=== PATIENT | female | born 1945 | race Caucasian/White ===

== ENCOUNTER 2018-05-13 21:32 | Observation (INO) | payer MEDICARE, BC ==
[2018-05-13 22:13] LABS: CHLORIDE,CL 101 mEq/L (98-106); SODIUM,NA 140 mEq/L (136-145)
--- NOTE | 2018-05-13 22:26 | EDM.PDOC ---
ED HPI GENERAL MEDICAL PROBLEM - General Chief Complaint: Chest Pain Stated Complaint: chest pain Time Seen by Provider: 05/13/18 21:47 Source of Information: Reports: Patient History Limitations: Reports: No Limitations - History of Present Illness INITIAL COMMENTS - FREE TEXT/NARRATIVE: Mary is a 72 yo female who presents to the ED with complaints of chest pain. She states she was sitting at her computer this evening and started getting midsternal chest pain with radiation into her neck. She states she had a burning sensation in her neck. Denies any history of GERD. She admits she then went to sit down on the couch and symptoms didn't subside. She has chronic history of shortness of breath but states tonight it seems worse. Denies any upper respiratory symptoms. States she has a history of mild aortic insufficiency, otherwise denies any cardiac history. Currently on Plavix and has been on for quite some time secondary to a stroke many years ago. She states she hasn't been feeling well the last few days. States she has been lightheaded and fatigued. 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 Chest Pain Score (Numeric/FACES): 5 - Related Data Allergies Allergy/AdvReac Type Severity Reaction Status Date / Time acetaminophen Allergy Nausea and Verified 05/13/18 21:47 [From Darvocet-N 100] Vomiting codeine Allergy Vomiting Verified 05/13/18 21:47 cyclobenzaprine HCl Allergy Cannot Verified 05/13/18 21:47 [From Flexeril] Remember dipyridamole [From Aggrenox] Allergy Vomiting Verified 05/13/18 21:47 methylprednisolone sodium Allergy Edema Verified 05/13/18 21:47 succinate [From Solu-Medrol] morphine Allergy Hallucinati Verified 05/13/18 21:47 ons promethazine HCl Allergy Hypotension Verified 05/13/18 21:47 [From Phenergan] propoxyphene napsylate Allergy Nausea and Verified 05/13/18 21:47 [From Darvocet-N 100] Vomiting sulfamethoxazole Allergy Nausea and Verified 05/13/18 21:47 [From Bactrim] Vomiting Tetanus Vaccines and Toxoid Allergy Edema Verified 05/13/18 21:47 [Tetanus Vaccines & Toxoid] trimethoprim [From Bactrim] Allergy Nausea and Verified 05/13/18 21:47 Vomiting levofloxacin AdvReac Mild Nausea Verified 05/13/18 21:47 primidone AdvReac Vomiting Verified 05/13/18 21:47 Home Meds: Home Meds Atenolol [Tenormin] 25 mg PO DAILY 05/28/13 [History] Ketorolac Tromethamine [Acular] 1 drop EYELF DAILY PRN 05/28/13 [History] Sertraline HCl 100 mg PO DAILY 05/28/13 [History] Travoprost [Travatan Z 0.004% Ophth Soln] 1 drop EYEBOTH QPM 05/28/13 [History] atorvaSTATin [Lipitor] 40 mg PO DAILY 05/28/13 [History] cycloSPORINE [Restasis] 1 each OP BID 05/28/13 [History] prednisoLONE acetate [Pred Forte 1% Ophth Susp] 1 drop EYEBOTH DAILY PRN [History] Cholecalciferol (Vitamin D3) [Vitamin D] 5,000 unit PO DAILY 01/14/15 [History] Magnesium 250 mg PO DAILY 01/14/15 [History] Clopidogrel Bisulfate [Clopidogrel] 75 mg PO DAILY 01/22/16 [History] Levothyroxine Sodium [Synthroid] 50 mcg PO DAILY 01/22/16 [History] Albuterol [Ventolin HFA] 8 gm INH BID 04/11/16 [History] Ketorolac [Acular 0.5% Ophth Soln] 1 drop OP TID PRN 04/11/16 [History] Mometasone Furoate [Nasonex [place]] 17 gm ALYSSA DAILY 04/11/16 [History] valACYclovir HCl [Valtrex] 250 mg PO ASDIRECTED PRN 04/11/16 [History] Past Medical History HEENT History: Reports: Cataract, Glaucoma Other HEENT History: EAR INFECTIONS Cardiovascular History: Reports: High Cholesterol, Hypertension Other Cardiovascular History: VALVE INSUFFICIENCY Respiratory History: Reports: Asthma Gastrointestinal History: Reports: Diverticulosis, Irritable Bowel Syndrome Genitourinary History: Reports: Other (See Below) Other Genitourinary History: 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: Neurological History: Reports: CVA, Headaches, Chronic, TIA Psychiatric History: Reports: Anxiety, Depression Endocrine/Metabolic History: Reports: Hypothyroidism Hematologic History: Reports: Blood Transfusion(s) Other Hematologic History: 1981-blood transfusion - Infectious Disease History Infectious Disease History: Reports: Shingles - Past Surgical History HEENT Surgical History: Reports: Cataract Surgery GI Surgical History: Reports: Appendectomy, Cholecystectomy, Colonoscopy, EGD Female Surgical History: Reports: Hysterectomy, Oophorectomy Musculoskeletal Surgical History: Reports: Arthroscopic Knee Social & Family History - Family History Family Medical History: Noncontributory - Tobacco Use Smoking Status *Q: Never Smoker - Caffeine Use Caffeine Use: Reports: Coffee - Recreational Drug Use Recreational Drug Use: No ED ROS GENERAL - Review of Systems Review Of Systems: See Below Constitutional: Reports: Fatigue. Denies: Fever, Chills, Diaphoresis HEENT: Reports: No Symptoms Respiratory: Reports: Shortness of Breath. Denies: Pleuritic Chest Pain, Cough Cardiovascular: Reports: Chest Pain, Dyspnea on Exertion, Lightheadedness. Denies: Edema, Palpitations, Syncope GI/Abdominal: Reports: No Symptoms. Denies: Bloody Stool, Constipation, Diarrhea, Nausea, Vomiting : Reports: No Symptoms Musculoskeletal: Reports: No Symptoms Skin: Reports: No Symptoms Neurological: Reports: Dizziness, Headache. Denies: Syncope, Difficulty Walking , Change in Speech, Gait Disturbance Psychiatric: Reports: No Symptoms ED EXAM, GENERAL - Physical Exam Exam: See Below Exam Limited By: No Limitations General Appearance: Alert, No Apparent Distress (sitting comfortably on examination cart, no signs of current distress, mild anxiety noted) Ears: Normal External Exam, Normal Canal, Hearing Grossly Normal, Normal TMs Nose: Normal Inspection, No Blood Throat/Mouth: Normal Inspection, Normal Lips, Normal Teeth, Normal Gums, Normal Oropharynx, Normal Voice, No Airway Compromise Head: Atraumatic, Normocephalic Neck: Normal Inspection, Supple Respiratory/Chest: No Respiratory Distress, Lungs Clear, Normal Breath Sounds, No Accessory Muscle Use Cardiovascular: Normal Peripheral Pulses, Regular Rate, Rhythm, No Edema, No Gallop, Systolic Murmur (RUSB) GI/Abdominal: Normal Bowel Sounds, Soft, Non-Tender, No Organomegaly, No Distention, No Mass Extremities: Normal Inspection Neurological: Alert, Oriented, Normal Cognition, No Motor/Sensory Deficits Psychiatric: Normal Affect Skin Exam: Warm, Dry, Intact, Normal Color, No Rash Course - Vital Signs Last Recorded V/S: Last Vital Signs Temp 98 F 05/13/18 21:44 Pulse 77 05/13/18 22:19 Resp 17 05/13/18 22:02 BP 145/75 H 05/13/18 22:35 Pulse Ox 94 L 05/13/18 22:19 - Orders/Labs/Meds Orders: Active Orders 24 hr Category Date Time Status EKG Documentation Completion [RC] STAT Care 05/13/18 21:51 Active CTA Chest W WO Contrast [Ang Chest] [CT] Stat Exams 05/13/18 22:26 Taken Chest 2V [CR] Stat Exams 05/13/18 21:52 Taken Labs: Laboratory Tests 05/13/18 05/13/18 05/13/18 Range/Units 21:52 21:52 21:52 WBC 10.3 H (5.0-10.0) 10^3/uL RBC 4.10 (4.00-5.50) 10^6/uL Hgb 12.1 (12.0-16.0) g/dL Hct 37.2 (37.0-47.0) % MCV 90.7 (82.0-94.0) fL MCH 29.5 (27.0-32.0) pg MCHC 32.5 L (33.0-38.0) g/dL RDW Coeff of Genaro 13.3 (11.0-15.0) % Plt Count 175 (150-400) 10^3/uL Neut % (Auto) 69.1 (35-85) % Lymph % (Auto) 20.1 (10-55) % [place] % (Auto) 9.6 (0-16) % Eos % (Auto) 0.9 (0-5) % Baso % (Auto) 0.3 (0-3) % Neut # (Auto) 7.10 H (1.80-7.00) 10^3/uL Lymph # (Auto) 2.06 (1.00-4.80) 10^3/uL [place] # (Auto) 0.99 H (0.00-0.80) 10^3/uL Eos # (Auto) 0.09 (0.00-0.45) 10^3/uL Baso # (Auto) 0.03 10^3/uL PT 10.0 (9.7-12.3) SEC INR 0.97 (0.92-1.18) D-Dimer, Quantitative (0.00-0.50) Sodium 140 (136-145) mEq/L Potassium 3.7 (3.5-5.0) mEq/L Chloride 101 (98-106) mEq/L Carbon Dioxide 32 (21-32) mmol/L BUN 19 H (7-18) mg/dL Creatinine 0.9 (0.6-1.0) mg/dL Est Cr Clr Drug Dosing 54.94 mL/min Estimated GFR (MDRD) > 60 (>=60) mL/min Glucose 151 H (75-99) mg/dL Calcium 9.2 (8.4-10.1) mg/dL Lactate Dehydrogenase 171 (100-190) U/L Creatine Kinase 51 (21-215) U/L Troponin I < 0.017 (0.00-0.06) ng/mL 05/13/18 Range/Units 22:08 WBC (5.0-10.0) 10^3/uL RBC (4.00-5.50) 10^6/uL Hgb (12.0-16.0) g/dL Hct (37.0-47.0) % MCV (82.0-94.0) fL MCH (27.0-32.0) pg MCHC (33.0-38.0) g/dL RDW Coeff of Genaro (11.0-15.0) % Plt Count (150-400) 10^3/uL Neut % (Auto) (35-85) % Lymph % (Auto) (10-55) % [place] % (Auto) (0-16) % Eos % (Auto) (0-5) % Baso % (Auto) (0-3) % Neut # (Auto) (1.80-7.00) 10^3/uL Lymph # (Auto) (1.00-4.80) 10^3/uL [place] # (Auto) (0.00-0.80) 10^3/uL Eos # (Auto) (0.00-0.45) 10^3/uL Baso # (Auto) 10^3/uL PT (9.7-12.3) SEC INR (0.92-1.18) D-Dimer, Quantitative 0.94 H (0.00-0.50) Sodium (136-145) mEq/L Potassium (3.5-5.0) mEq/L Chloride (98-106) mEq/L Carbon Dioxide (21-32) mmol/L BUN (7-18) mg/dL Creatinine (0.6-1.0) mg/dL Est Cr Clr Drug Dosing mL/min Estimated GFR (MDRD) (>=60) mL/min Glucose (75-99) mg/dL Calcium (8.4-10.1) mg/dL Lactate Dehydrogenase (100-190) U/L Creatine Kinase (21-215) U/L Troponin I (0.00-0.06) ng/mL Meds: Medications Discontinued Medications Generic Name Dose Route Start Last Admin Trade Name Freq PRN Reason Stop Dose Admin Iopamidol 100 ml 05/13/18 22:43 05/13/18 23:00 Isovue-370 (76%) IVPUSH 05/13/18 22:44 Not Given ONETIME ONE - Re-Assessments/Exams Free Text/Narrative Re-Assessment/Exam: Vital signs did show oxygen saturation around 93%. D-dimer was elevated; otherwise all labs unremarkable. Will get CTA chest to r/o pulmonary emboli. Chest x-ray showed no acute cardiopulmonary disease. Departure - Departure Time of Disposition: 00:25 Disposition: Refer to Observation Clinical Impression: Chest pain at rest Referrals: Med Garcia MD [Primary Care Provider] - Forms: ED Department Discharge - Problem List & Annotations (1) Chest pain at rest SNOMED Code(s): 3472634 Code(s): R07.9 - CHEST PAIN, UNSPECIFIED Status: Acute Current Visit: Yes - Problem List Review Problem List Initiated/Reviewed/Updated: Yes - My Orders Last 24 Hours: My Active Orders 05/13/18 21:51 EKG Documentation Completion [RC] STAT 05/13/18 21:52 Chest 2V [CR] Stat 05/13/18 22:26 CTA Chest W WO Contrast [Ang Chest] [CT] Stat - Assessment/Plan Admission H&P: Please use this note as an admission H&P Last 24 Hours: My Active Orders 05/13/18 21:51 EKG Documentation Completion [RC] STAT 05/13/18 21:52 Chest 2V [CR] Stat 05/13/18 22:26 CTA Chest W WO Contrast [Ang Chest] [CT] Stat Plan: CTA of the chest showed no pulmonary emboli. Will admit to Dr. Steiner's services under observation for cardiac rule out. Will repeat cardiac enzymes and EKG in am. Telemetry tonight. Will plan on discharge in am if negative. Dr. Steiner consulted via telephone and agreed with admission for observation. Mary updated on current status and agreed to observation.
[2018-05-13] MEDS ORDERED: Iopamidol 755 Mg/ML 100 ML Bottle IVPUSH ONE (22:43)
[2018-05-14] MEDS ORDERED: prednisoLONE Acetate 1% Ophth Susp 5 ML Bottle EYEBOTH PRN (00:40)
[2018-05-14] MEDS ORDERED: Ketorolac 0.5% Ophth Soln 3 ML Bottle EYELF PRN (00:40)
[2018-05-14] MEDS ORDERED: Ketorolac 0.5% Ophth Soln 3 ML Bottle PRN (00:40)
[2018-05-14] MEDS ORDERED: Sodium Chloride 0.9% 10 ML Syringe FLUSH PRN (00:40)
[2018-05-14] MEDS ORDERED: Docusate Sodium 100 MG Cap PO PRN (00:40)
[2018-05-14] MEDS ORDERED: Albuterol 8 GM Inhaler INH SCH (08:00)
[2018-05-14] MEDS ORDERED: Atenolol 25 MG Tab PO SCH (08:00)
[2018-05-14] MEDS ORDERED: Sertraline 100 MG Tab PO SCH (08:00)
[2018-05-14] MEDS ORDERED: Clopidogrel 75 MG Tab PO SCH (08:00)
[2018-05-14] MEDS ORDERED: Non-Formulary Medication 1 Each (Cyclosporine [Restasis] 1 EACH) OP SCH (08:00)
[2018-05-14] MEDS ORDERED: atorvaSTATin 20 MG Tab PO SCH (08:00)
[2018-05-14] MEDS ORDERED: Levothyroxine 50 MCG Tab PO SCH (08:00)
[2018-05-14] MEDS ORDERED: Iopamidol 755 Mg/ML 100 ML Bottle IV ONE (08:29)
--- NOTE | 2018-05-14 08:31 | PCM.DCSUM1 ---
Discharge Summary - Hospital Course HPI Initial Comments: Mary is a 72 year old female who was admitted observation status to the hospital last evening for chest pain rule out. D-dimer was elevated. Patient did have CTA chest which was unremarkable. Also had CXR revealing no acute cardiopulmonary processes. Initial cardiac workup was normal. Was kept for repeat cardiac enzymes and EKG. Patient did have cardiac enzymes and EKG repeated this morning which were normal. EKG showed no changes and troponin was normal. Patient reported that her pain seems to have subsided throughout the night. She is feeling well this morning and wishes to discharge home. She will be scheduled for Cardiolyte tomorrow morning with Dr. Steiner. - Discharge Data Discharge Date: 05/14/18 Discharge Disposition: Home, Self-Care 01 Condition: Good - Discharge Diagnosis/Problem(s) (1) Chest pain at rest SNOMED Code(s): 7150777 ICD Code: R07.9 - CHEST PAIN, UNSPECIFIED Status: Acute - Patient Instructions Diet: Usual Diet as Tolerated Activity: As Tolerated, No Strenuous Activities Notify Provider of: Fever, Increased Pain, Nausea and/or Vomiting - Discharge Plan *PRESCRIPTION DRUG MONITORING PROGRAM REVIEWED*: Not Applicable *COPY OF PRESCRIPTION DRUG MONITORING REPORT IN PATIENT SHANTELL: Not Applicable Home Medications: Home Meds Atenolol [Tenormin] 25 mg PO DAILY 05/28/13 [History] Ketorolac Tromethamine [Acular] 1 drop EYELF DAILY PRN 05/28/13 [History] Sertraline HCl 100 mg PO DAILY 05/28/13 [History] Travoprost [Travatan Z 0.004% Ophth Soln] 1 drop EYEBOTH QPM 05/28/13 [History] atorvaSTATin [Lipitor] 40 mg PO DAILY 05/28/13 [History] cycloSPORINE [Restasis] 1 each OP BID 05/28/13 [History] prednisoLONE acetate [Pred Forte 1% Ophth Susp] 1 drop EYEBOTH DAILY PRN [History] Cholecalciferol (Vitamin D3) [Vitamin D] 5,000 unit PO DAILY 01/14/15 [History] Magnesium 250 mg PO DAILY 01/14/15 [History] Clopidogrel Bisulfate [Clopidogrel] 75 mg PO DAILY 01/22/16 [History] Levothyroxine Sodium [Synthroid] 50 mcg PO DAILY 01/22/16 [History] Albuterol [Ventolin HFA] 8 gm INH BID 04/11/16 [History] Ketorolac [Acular 0.5% Ophth Soln] 1 drop OP TID PRN 04/11/16 [History] Mometasone Furoate [Nasonex [place]] 17 gm ALYSSA DAILY 04/11/16 [History] valACYclovir HCl [Valtrex] 250 mg PO ASDIRECTED PRN 04/11/16 [History] Patient Handouts: Nonspecific Chest Pain, [id number] Forms: ED Department Discharge Referrals: Med Garcia MD [Primary Care Provider] - - Discharge Summary/Plan Comment DC Time >30 min.: No - General Info Date of Service: 05/14/18 Admission Dx/Problem (Free Text: Chest Pain at rest Subjective Update: Patient reports she is feeling fine this morning. Chest pain has seemed to have subsided. She denies any dizziness, cough, shortness of breath, or syncope. Is sitting at edge of bed eating breakfast upon rounds. She offers no complaints. Functional Status: Reports: Pain Controlled, Tolerating Diet, Ambulating, Urinating. Denies: New Symptoms - Review of Systems General: Denies: Fever, Weakness, Fatigue, Chills HEENT: Reports: No Symptoms Pulmonary: Denies: Shortness of Breath, Pleuritic Chest Pain, Cough, Sputum, Hemoptysis, Wheezing Cardiovascular: Reports: Chest Pain. Denies: Palpitations, Dyspnea on Exertion , Orthopnea, Edema, Lightheadedness Gastrointestinal: Denies: Abdominal Pain, Diarrhea, Nausea, Vomiting Genitourinary: Reports: No Symptoms Musculoskeletal: Reports: No Symptoms Skin: Reports: No Symptoms Neurological: Reports: No Symptoms Psychiatric: Reports: No Symptoms - Patient Data Vitals - Most Recent: Last Vital Signs Temp 96.4 F 05/14/18 04:00 Pulse 73 05/14/18 04:00 Resp 16 05/14/18 04:00 BP 111/54 L 05/14/18 04:00 Pulse Ox 98 05/14/18 04:00 Weight - Most Recent: 157 lb 3.2 oz Lab Results - Last 24 hrs: Laboratory Results - last 24 hr 05/13/18 05/13/18 05/13/18 Range/Units 21:52 21:52 21:52 WBC 10.3 H (5.0-10.0) 10^3/uL RBC 4.10 (4.00-5.50) 10^6/uL Hgb 12.1 (12.0-16.0) g/dL Hct 37.2 (37.0-47.0) % MCV 90.7 (82.0-94.0) fL MCH 29.5 (27.0-32.0) pg MCHC 32.5 L (33.0-38.0) g/dL RDW Coeff of Genaro 13.3 (11.0-15.0) % Plt Count 175 (150-400) 10^3/uL Neut % (Auto) 69.1 (35-85) % Lymph % (Auto) 20.1 (10-55) % [place] % (Auto) 9.6 (0-16) % Eos % (Auto) 0.9 (0-5) % Baso % (Auto) 0.3 (0-3) % Neut # (Auto) 7.10 H (1.80-7.00) 10^3/uL Lymph # (Auto) 2.06 (1.00-4.80) 10^3/uL [place] # (Auto) 0.99 H (0.00-0.80) 10^3/uL Eos # (Auto) 0.09 (0.00-0.45) 10^3/uL Baso # (Auto) 0.03 10^3/uL PT 10.0 (9.7-12.3) SEC INR 0.97 (0.92-1.18) D-Dimer, Quantitative (0.00-0.50) Sodium 140 (136-145) mEq/L Potassium 3.7 (3.5-5.0) mEq/L Chloride 101 (98-106) mEq/L Carbon Dioxide 32 (21-32) mmol/L BUN 19 H (7-18) mg/dL Creatinine 0.9 (0.6-1.0) mg/dL Est Cr Clr Drug Dosing 54.94 mL/min Estimated GFR (MDRD) > 60 (>=60) mL/min Glucose 151 H (75-99) mg/dL Calcium 9.2 (8.4-10.1) mg/dL Lactate Dehydrogenase 171 (100-190) U/L Creatine Kinase 51 (21-215) U/L Troponin I < 0.017 (0.00-0.06) ng/mL 05/13/18 05/14/18 Range/Units 22:08 07:15 WBC (5.0-10.0) 10^3/uL RBC (4.00-5.50) 10^6/uL Hgb (12.0-16.0) g/dL Hct (37.0-47.0) % MCV (82.0-94.0) fL MCH (27.0-32.0) pg MCHC (33.0-38.0) g/dL RDW Coeff of Genaro (11.0-15.0) % Plt Count (150-400) 10^3/uL Neut % (Auto) (35-85) % Lymph % (Auto) (10-55) % [place] % (Auto) (0-16) % Eos % (Auto) (0-5) % Baso % (Auto) (0-3) % Neut # (Auto) (1.80-7.00) 10^3/uL Lymph # (Auto) (1.00-4.80) 10^3/uL [place] # (Auto) (0.00-0.80) 10^3/uL Eos # (Auto) (0.00-0.45) 10^3/uL Baso # (Auto) 10^3/uL PT (9.7-12.3) SEC INR (0.92-1.18) D-Dimer, Quantitative 0.94 H (0.00-0.50) Sodium (136-145) mEq/L Potassium (3.5-5.0) mEq/L Chloride (98-106) mEq/L Carbon Dioxide (21-32) mmol/L BUN (7-18) mg/dL Creatinine (0.6-1.0) mg/dL Est Cr Clr Drug Dosing mL/min Estimated GFR (MDRD) (>=60) mL/min Glucose (75-99) mg/dL Calcium (8.4-10.1) mg/dL Lactate Dehydrogenase (100-190) U/L Creatine Kinase 47 (21-215) U/L Troponin I < 0.017 (0.00-0.06) ng/mL Med Orders - Current: Current Medications Albuterol (Ventolin Hfa) 8 gm INH BID [facility]ARY ALICE Atenolol (Tenormin) 25 mg PO DAILY [facility] Atorvastatin Calcium (Lipitor) 40 mg PO DAILY [facility]ARY ALICE Clopidogrel Bisulfate (Plavix) 75 mg PO DAILY [facility]ARY ALICE Docusate Sodium (Colace) 100 mg PO BID PRN PRN Reason: Constipation Ketorolac Tromethamine (Acular 0.5% Ophth Soln) 0 ml EYELF DAILY PRN PRN Reason: Dry Eyes Ketorolac Tromethamine (Acular 0.5% Ophth Soln) 0 ml .XX TID PRN PRN Reason: Other Latanoprost (Xalatan 0.005% Ophth Soln) 0 ml EYEBOTH QPM MARY ALICE Levothyroxine Sodium (Synthroid) 50 mcg PO DAILY [facility] ALICE Magnesium Oxide (Magnesium Oxide) 250 mg PO DAILY [facility] Non-Formulary Medication (Cyclosporine [Restasis]) 1 each OP BID MARY ALICE Prednisolone Acetate (Pred Forte 1% Ophth Susp) 0 ml EYEBOTH DAILY PRN PRN Reason: Eyes Sertraline HCl (Zoloft) 100 mg PO DAILY [facility] Sodium Chloride (Saline Flush) 10 ml FLUSH ASDIRECTED PRN PRN Reason: Keep Vein Open Discontinued Medications Iopamidol (Isovue-370 (76%)) 100 ml IVPUSH ONETIME ONE Stop: 05/13/18 22:44 Last Admin: 05/13/18 23:00 Dose: Not Given - Exam General: Reports: Alert, Oriented, No Acute Distress Neck: Reports: Supple Lungs: Reports: Clear to Auscultation, Normal Respiratory Effort Cardiovascular: Reports: Regular Rate, Regular Rhythm GI/Abdominal Exam: Normal Bowel Sounds, Soft, Non-Tender, No Organomegaly, No Distention, No Abnormal Bruit, No Mass, Pelvis Stable Back Exam: Reports: Normal Inspection, Full Range of Motion Extremities: Normal Inspection, Normal Range of Motion, Non-Tender, No Pedal Edema, Normal Capillary Refill Skin: Reports: Warm, Dry, Intact Neurological: Reports: No New Focal Deficit Psy/Mental Status: Reports: Alert, Normal Affect, Normal Mood
[2018-05-14 09:29] VITALS: BP 137/64
[2018-05-14] MEDS ORDERED: Latanoprost 0.005% Ophth Soln 2.5 ML Bottle EYEBOTH SCH (20:00)
== END 2018-05-14 08:30 | disposition home or self-care (01) ==
LOC: SUPCPDRO 21:32 → CC.ED 21:32 → UNDOADMOB 05-14 00:20 → CC.MS 05-14 00:20
PROVIDERS: ADMIT Physician Assistant Medical; ATTEND Family Medicine
DX: R07.9 Chest pain, unspecified (principal); I10 Essential (primary) hypertension; E78.00 Pure hypercholesterolemia, unspecified; E03.9 Hypothyroidism, unspecified; J45.909 Unspecified asthma, uncomplicated; F41.9 Anxiety disorder, unspecified; F32.9 Major depressive disorder, single episode, unspecified; Z79.899 Other long term (current) drug therapy; Z88.5 Allergy status to narcotic agent; Z88.6 Allergy status to analgesic agent; Z88.2 Allergy status to sulfonamides; Z88.7 Allergy status to serum and vaccine; Z88.8 Allergy status to other drugs, medicaments and biological substances
CPT/HCPCS: 36415; 71046; 71275; 80048; 82550; 83615; 84484; 85025; 85379; 85610; 93005; 99285-25; G0378; Q9967

== ENCOUNTER 2018-07-25 20:49 | Emergency (ER) | payer MEDICARE, BC ==
--- NOTE | 2018-07-25 21:23 | EDM.PDOC ---
ED HPI GENERAL MEDICAL PROBLEM - General Chief Complaint: Chest Pain Stated Complaint: "Having chest pain" Time Seen by Provider: 07/25/18 21:20 Source of Information: Reports: Patient History Limitations: Reports: No Limitations - History of Present Illness INITIAL COMMENTS - FREE TEXT/NARRATIVE: Mary is a 72 year old female who presents to the ED with c/o short episode of chest pain and disorientation. She reports around 2019 she had episode of sharp midsternal chest pain that lasted 5-10 minutes and then resolved. She reports prior to ED presentation, chest pain had resolved, but her thought she should still come in. Does report she has been having episodes of chest pain for some time now. 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 She is concerned as both her sisters and brother had had early SC or stents placed. She reports she just hasn't felt well today. Reports she felt somewhat disoriented as she "went to the kitchen to go to the bathroom earlier." Reports she was somewhat confused and not sure why. Denies any shortness of breath outside of baseline, dizziness, N/V/D, urinary symptoms. No other complaints. She has a very flat affect. Does report history of anxiety and depression. Denies any issues with GERD. Onset: Today, Sudden Onset Date: 07/25/18 Onset Time: 20:20 Duration: Resolved Prior to Arrival Location: Reports: Chest Quality: Reports: Pressure Associated Symptoms: Reports: Confusion, Chest Pain. Denies: Cough, cough w sputum, Diaphoresis, Fever/Chills, Headaches, Loss of Appetite, Malaise, Nausea/ Vomiting, Shortness of Breath - Related Data Allergies Allergy/AdvReac Type Severity Reaction Status Date / Time acetaminophen Allergy Nausea and Verified 05/15/18 10:02 [From Darvocet-N 100] Vomiting codeine Allergy Vomiting Verified 05/15/18 10:02 cyclobenzaprine HCl Allergy Cannot Verified 05/15/18 10:02 [From Flexeril] Remember dipyridamole [From Aggrenox] Allergy Vomiting Verified 05/15/18 10:02 hydromorphone [From Dilaudid] Allergy Cannot Verified 05/15/18 10:02 Remember methylprednisolone sodium Allergy Edema Verified 05/15/18 10:02 succinate [From Solu-Medrol] morphine Allergy Hallucinati Verified 05/15/18 10:02 ons promethazine HCl Allergy Hypotension Verified 05/15/18 10:02 [From Phenergan] propoxyphene napsylate Allergy Nausea and Verified 05/15/18 10:02 [From Darvocet-N 100] Vomiting sulfamethoxazole Allergy Nausea and Verified 05/15/18 10:02 [From Bactrim] Vomiting Tetanus Vaccines and Toxoid Allergy Edema Verified 05/15/18 10:02 [Tetanus Vaccines & Toxoid] trimethoprim [From Bactrim] Allergy Nausea and Verified 05/15/18 10:02 Vomiting levofloxacin AdvReac Mild Nausea Verified 05/15/18 10:02 primidone AdvReac Vomiting Verified 05/15/18 10:02 Home Meds: Home Meds Atenolol [Tenormin] 25 mg PO DAILY 05/28/13 [History] Ketorolac Tromethamine [Acular] 1 drop EYELF DAILY PRN 05/28/13 [History] Sertraline HCl 100 mg PO DAILY 05/28/13 [History] Travoprost [Travatan Z 0.004% Ophth Soln] 1 drop EYEBOTH QPM 05/28/13 [History] atorvaSTATin [Lipitor] 40 mg PO DAILY 05/28/13 [History] cycloSPORINE [Restasis] 1 each OP BID 05/28/13 [History] prednisoLONE acetate [Pred Forte 1% Ophth Susp] 1 drop EYEBOTH ASDIRECTED PRN [History] Magnesium 250 mg PO DAILY 01/14/15 [History] Clopidogrel Bisulfate [Clopidogrel] 75 mg PO DAILY 01/22/16 [History] Levothyroxine Sodium [Synthroid] 50 mcg PO DAILY 01/22/16 [History] Albuterol [Ventolin HFA] 8 gm INH BID 04/11/16 [History] Mometasone Furoate [Nasonex [place]] 17 gm ALYSSA DAILY 04/11/16 [History] Estradiol 1 mg PO DAILY 05/16/18 [History] Past Medical History HEENT History: Reports: Cataract, Glaucoma Other HEENT History: EAR INFECTIONS Cardiovascular History: Reports: High Cholesterol, Hypertension Other Cardiovascular History: VALVE INSUFFICIENCY Respiratory History: Reports: Asthma Gastrointestinal History: Reports: Diverticulosis, Irritable Bowel Syndrome Genitourinary History: Reports: Other (See Below) Other Genitourinary History: 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: Neurological History: Reports: CVA, Headaches, Chronic, TIA Psychiatric History: Reports: Anxiety, Depression Endocrine/Metabolic History: Reports: Hypothyroidism Hematologic History: Reports: Blood Transfusion(s) Other Hematologic History: 1980-blood transfusion - Infectious Disease History Infectious Disease History: Reports: Shingles - Past Surgical History HEENT Surgical History: Reports: Cataract Surgery GI Surgical History: Reports: Appendectomy, Cholecystectomy, Colonoscopy, EGD Female Surgical History: Reports: Hysterectomy, Oophorectomy Musculoskeletal Surgical History: Reports: Arthroscopic Knee Social & Family History - Family History Family Medical History: Noncontributory - Caffeine Use Caffeine Use: Reports: None ED ROS GENERAL - Review of Systems Review Of Systems: ROS reveals no pertinent complaints other than HPI. ED EXAM, GENERAL - Physical Exam Exam: See Below Exam Limited By: No Limitations General Appearance: Alert, WD/WN, No Apparent Distress Eye Exam: Bilateral Eye: EOMI, PERRL Throat/Mouth: Normal Inspection, Normal Lips, Normal Teeth, Normal Gums, Normal Oropharynx, Normal Voice, No Airway Compromise Head: Atraumatic, Normocephalic Respiratory/Chest: No Respiratory Distress, Lungs Clear, Normal Breath Sounds, No Accessory Muscle Use, Chest Non-Tender Cardiovascular: Normal Peripheral Pulses, Regular Rate, Rhythm, No Edema, No Gallop, No JVD, No Murmur, No Rub GI/Abdominal: Normal Bowel Sounds, Soft, Non-Tender, No Organomegaly, No Distention, No Abnormal Bruit, No Mass Back Exam: Normal Inspection, Full Range of Motion, NT Extremities: Normal Inspection, Normal Range of Motion, Non-Tender, Normal Capillary Refill, No Pedal Edema Neurological: Alert, Oriented, CN II-XII Intact, Normal Cognition, Normal Gait, Normal Reflexes, No Motor/Sensory Deficits Psychiatric: Depressed Mood, Flat Affect Skin Exam: Warm, Dry, Intact, Normal Color, No Rash Lymphatic: No Adenopathy Course - Orders/Labs/Meds Orders: Active Orders 24 hr Category Date Time Status Chest 2V [CR] Routine Exams 07/25/18 Taken CULTURE URINE [RM] Stat Lab 07/25/18 21:40 Received Labs: Laboratory Tests 07/25/18 07/25/18 07/25/18 Range/Units 21:05 21:05 21:05 WBC 8.5 (5.0-10.0) 10^3/uL RBC 4.28 (4.00-5.50) 10^6/uL Hgb 12.5 (12.0-16.0) g/dL Hct 37.7 (37.0-47.0) % MCV 88.1 (82.0-94.0) fL MCH 29.2 (27.0-32.0) pg MCHC 33.2 (33.0-38.0) g/dL RDW Coeff of Genaro 13.6 (11.0-15.0) % Plt Count 166 (150-400) 10^3/uL Neut % (Auto) 61.2 (35-85) % Lymph % (Auto) 27.6 (10-55) % [place] % (Auto) 9.6 (0-16) % Eos % (Auto) 1.1 (0-5) % Baso % (Auto) 0.5 (0-3) % Neut # (Auto) 5.20 (1.80-7.00) 10^3/uL Lymph # (Auto) 2.35 (1.00-4.80) 10^3/uL Deuel # (Auto) 0.82 H (0.00-0.80) 10^3/uL Eos # (Auto) 0.09 (0.00-0.45) 10^3/uL Baso # (Auto) 0.04 10^3/uL PT 9.9 (9.7-12.3) SEC INR 0.96 (0.92-1.18) APTT 24.3 (23.2-32.3) SEC D-Dimer, Quantitative (0.00-0.50) Sodium 142 (136-145) mEq/L Potassium 3.7 (3.5-5.0) mEq/L Chloride 105 (98-106) mEq/L Carbon Dioxide 30 (21-32) mmol/L BUN 21 H (7-18) mg/dL Creatinine 1.0 (0.6-1.0) mg/dL Est Cr Clr Drug Dosing TNP Estimated GFR (MDRD) 55 L (>=60) mL/min Glucose 141 H (75-99) mg/dL Calcium 8.6 (8.4-10.1) mg/dL Lactate Dehydrogenase 146 (100-190) U/L Creatine Kinase 85 (21-215) U/L Troponin I < 0.017 (0.00-0.06) ng/mL Urine Color (YELLOW) Urine Appearance (CLEAR) Urine pH (4.5-8.0) Ur Specific [place] (1.003-1.020) Urine Protein (NEGATIVE) mg/dL Urine Glucose (UA) (NEGATIVE) mg/dL Urine Ketones (NEGATIVE) mg/dL Urine Occult Blood (NEGATIVE) Urine Nitrite (NEGATIVE) Urine Bilirubin (NEGATIVE) Urine Urobilinogen (0.2-1.0) EU/dL Ur Leukocyte Esterase (NEGATIVE) Urine RBC (0-5) /HPF Urine WBC (0-5) /HPF Ur Squamous Epith Cells (NOT SEEN) /HPF Urine Bacteria (NOT SEEN) /HPF Urinalysis Comment 07/25/18 07/25/18 Range/Units 21:05 21:40 WBC (5.0-10.0) 10^3/uL RBC (4.00-5.50) 10^6/uL Hgb (12.0-16.0) g/dL Hct (37.0-47.0) % MCV (82.0-94.0) fL MCH (27.0-32.0) pg MCHC (33.0-38.0) g/dL RDW Coeff of Genaro (11.0-15.0) % Plt Count (150-400) 10^3/uL Neut % (Auto) (35-85) % Lymph % (Auto) (10-55) % Deuel % (Auto) (0-16) % Eos % (Auto) (0-5) % Baso % (Auto) (0-3) % Neut # (Auto) (1.80-7.00) 10^3/uL Lymph # (Auto) (1.00-4.80) 10^3/uL Deuel # (Auto) (0.00-0.80) 10^3/uL Eos # (Auto) (0.00-0.45) 10^3/uL Baso # (Auto) 10^3/uL PT (9.7-12.3) SEC INR (0.92-1.18) APTT (23.2-32.3) SEC D-Dimer, Quantitative 0.53 H (0.00-0.50) Sodium (136-145) mEq/L Potassium (3.5-5.0) mEq/L Chloride (98-106) mEq/L Carbon Dioxide (21-32) mmol/L BUN (7-18) mg/dL Creatinine (0.6-1.0) mg/dL Est Cr Clr Drug Dosing Estimated GFR (MDRD) (>=60) mL/min Glucose (75-99) mg/dL Calcium (8.4-10.1) mg/dL Lactate Dehydrogenase (100-190) U/L Creatine Kinase (21-215) U/L Troponin I (0.00-0.06) ng/mL Urine Color Yellow (YELLOW) Urine Appearance Slightly cloudy (CLEAR) Urine pH 5.0 (4.5-8.0) Ur Specific [place] 1.020 (1.003-1.020) Urine Protein Negative (NEGATIVE) mg/dL Urine Glucose (UA) Negative (NEGATIVE) mg/dL Urine Ketones Negative (NEGATIVE) mg/dL Urine Occult Blood Negative (NEGATIVE) Urine Nitrite Negative (NEGATIVE) Urine Bilirubin Negative (NEGATIVE) Urine Urobilinogen 0.2 (0.2-1.0) EU/dL Ur Leukocyte Esterase Small H (NEGATIVE) Urine RBC Not seen (0-5) /HPF Urine WBC 5-10 H (0-5) /HPF Ur Squamous Epith Cells Few H (NOT SEEN) /HPF Urine Bacteria Occasional H (NOT SEEN) /HPF Urinalysis Comment Meds: Medications Discontinued Medications Generic Name Dose Route Start Last Admin Trade Name Freq PRN Reason Stop Dose Admin Ceftriaxone Sodium 1 gm 07/25/18 21:48 Rocephin IVPUSH 07/25/18 21:49 ONETIME ONE - Re-Assessments/Exams Free Text/Narrative Re-Assessment/Exam: 07/25/18 21:54 Discussed labs, EKG, and CXR findings with patient. All labs stable. UA shows small leukocyte esterase and 5-10 WBCs. EKG NSR. CXR no acute findings. Departure - Departure Time of Disposition: 21:52 Disposition: Home, Self-Care 01 Condition: Good Clinical Impression: Atypical chest pain UTI (urinary tract infection) Qualifiers: Urinary tract infection type: site unspecified Hematuria presence: without hematuria Qualified Code(s): N39.0 - Urinary tract infection, site not specified Instructions: Urinary Tract Infection, Adult, [id number], Nonspecific Chest Pain, [id number] Forms: ED Department Discharge Additional Instructions: - Labs, EKG, and Chest xray all look good other than questionable UTI - Rest and push fluids the next few days - Could trial course of omeprazole daily to see if chest pain symptoms related to reflux - Clinic will notify you in next 2 days of culture results - Follow up with PCP for ED follow up in the next 1 week. Recommend cardiology consultation given ongoing chest pain and perfusion defect on Cardiolite. - Return to ED for any other emergent needs - My Orders Last 24 Hours: My Active Orders 07/25/18 Chest 2V [CR] Routine 07/25/18 21:40 CULTURE URINE [RM] Stat - Assessment/Plan Last 24 Hours: My Active Orders 07/25/18 Chest 2V [CR] Routine 07/25/18 21:40 CULTURE URINE [RM] Stat Plan: Labs, EKG, and CXR all look good except for questionable UTI. Discussed these findings with patient. Administered 1 G Rocephin. Will await culture report to see if any additional treatment necessary. Discussed that patient could trial omeprazole daily to see if this alleviates chest pain. Did review previous Cardiolite and recommend patient follow up out patient for cardiology referral. Patient discharged home in satisfactory condition. Patient and spouses questions answered.
[2018-07-25 21:27] LABS: CHLORIDE,CL 105 mEq/L (98-106); SODIUM,NA 142 mEq/L (136-145)
[2018-07-25] MEDS ORDERED: cefTRIAXone 1 GM Vial IVPUSH ONE (21:48)
[2018-07-25 21:53] VITALS: BP 150/68
== END 2018-07-25 22:15 | disposition home or self-care (01) ==
LOC: CC.ED 20:49
DX: R07.89 Other chest pain (principal); N39.0 Urinary tract infection, site not specified; I10 Essential (primary) hypertension; F41.9 Anxiety disorder, unspecified; F32.9 Major depressive disorder, single episode, unspecified; E03.9 Hypothyroidism, unspecified; Z86.73 Personal history of transient ischemic attack (TIA), and cerebral infarction without residual deficits; Z98.49 Cataract extraction status, unspecified eye; Z90.49 Acquired absence of other specified parts of digestive tract; Z90.710 Acquired absence of both cervix and uterus; Z88.8 Allergy status to other drugs, medicaments and biological substances; Z88.5 Allergy status to narcotic agent; Z88.1 Allergy status to other antibiotic agents; Z88.2 Allergy status to sulfonamides; Z79.899 Other long term (current) drug therapy
CPT/HCPCS: 36415; 71046; 80048; 81001; 82550; 83615; 84484; 85025; 85379; 85610; 85730; 87086; 96374; 99285; J0696; 99284

== ENCOUNTER 2019-01-12 16:55 | Emergency (ER) | payer MEDICARE, BC ==
[2019-01-12 17:34] LABS: CHLORIDE,CL 103 mEq/L (98-106); SODIUM,NA 139 mEq/L (136-145)
--- NOTE | 2019-01-12 17:34 | EDM.PDOC ---
ED HPI GENERAL MEDICAL PROBLEM - General Chief Complaint: General Stated Complaint: Feeling Unwell? Time Seen by Provider: 01/12/19 17:20 Source of Information: Reports: Patient, Family () History Limitations: Reports: No Limitations - History of Present Illness INITIAL COMMENTS - FREE TEXT/NARRATIVE: States that at 1640 tonight she started feeling "full" in her head and felt like she was going to black out. Denies room spinning. Then developed pain to the left upper quadrant and was concerned it was her heart so too a nitro which didn't change her feeling at all. "I feel like somebody blew me up". Feels that the abdominal bloating has improved. All she ate today was oatmeal. She has sore jaw and sore in her mouth that she was given some mouth rinse for from the dentist this AM. She denies any diaphoresis. Did have nausea but no vomiting. Onset: Today Location: Reports: Other (see HPI) - Related Data Allergies Allergy/AdvReac Type Severity Reaction Status Date / Time acetaminophen Allergy Nausea and Verified 01/12/19 16:59 [From Darvocet-N 100] Vomiting codeine Allergy Vomiting Verified 01/12/19 16:59 cyclobenzaprine HCl Allergy Cannot Verified 01/12/19 16:59 [From Flexeril] Remember dipyridamole [From Aggrenox] Allergy Vomiting Verified 01/12/19 16:59 hydromorphone [From Dilaudid] Allergy Cannot Verified 01/12/19 16:59 Remember methylprednisolone sodium Allergy Edema Verified 01/12/19 16:59 succinate [From Solu-Medrol] morphine Allergy Hallucinati Verified 01/12/19 16:59 ons promethazine HCl Allergy Hypotension Verified 01/12/19 16:59 [From Phenergan] propoxyphene napsylate Allergy Nausea and Verified 01/12/19 16:59 [From Darvocet-N 100] Vomiting sulfamethoxazole Allergy Nausea and Verified 01/12/19 16:59 [From Bactrim] Vomiting Tetanus Vaccines and Toxoid Allergy Edema Verified 01/12/19 16:59 [Tetanus Vaccines & Toxoid] trimethoprim [From Bactrim] Allergy Nausea and Verified 01/12/19 16:59 Vomiting levofloxacin AdvReac Mild Nausea Verified 01/12/19 16:59 primidone AdvReac Vomiting Verified 01/12/19 16:59 Home Meds: Home Meds Atenolol [Tenormin] 25 mg PO DAILY 05/28/13 [History] Ketorolac Tromethamine [Acular] 1 drop EYELF DAILY PRN 05/28/13 [History] Sertraline HCl 100 mg PO DAILY 05/28/13 [History] Travoprost [Travatan Z 0.004% Ophth Soln] 1 drop EYEBOTH QPM 05/28/13 [History] atorvaSTATin [Lipitor] 40 mg PO DAILY 05/28/13 [History] cycloSPORINE [Restasis] 1 each OP BID 05/28/13 [History] prednisoLONE acetate [Pred Forte 1% Ophth Susp] 1 drop EYEBOTH ASDIRECTED PRN [History] Magnesium 500 mg PO DAILY 01/14/15 [History] Clopidogrel Bisulfate [Clopidogrel] 75 mg PO DAILY 01/22/16 [History] Levothyroxine Sodium [Synthroid] 50 mcg PO DAILY 01/22/16 [History] Albuterol [Ventolin HFA] 8 gm INH BID 04/11/16 [History] Mometasone Furoate [Nasonex [place]] 17 gm ALYSSA DAILY 04/11/16 [History] Estradiol 1 mg PO DAILY 05/16/18 [History] Past Medical History HEENT History: Reports: Cataract, Glaucoma Other HEENT History: EAR INFECTIONS Cardiovascular History: Reports: High Cholesterol, Hypertension Other Cardiovascular History: VALVE INSUFFICIENCY Respiratory History: Reports: Asthma Gastrointestinal History: Reports: Diverticulosis, Irritable Bowel Syndrome Genitourinary History: Reports: Other (See Below) Other Genitourinary History: 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: Neurological History: Reports: CVA, Headaches, Chronic, TIA Psychiatric History: Reports: Anxiety, Depression Endocrine/Metabolic History: Reports: Hypothyroidism Hematologic History: Reports: Blood Transfusion(s) Other Hematologic History: 1981-blood transfusion - Infectious Disease History Infectious Disease History: Reports: Shingles - Past Surgical History HEENT Surgical History: Reports: Cataract Surgery GI Surgical History: Reports: Appendectomy, Cholecystectomy, Colonoscopy, EGD Female Surgical History: Reports: Hysterectomy, Oophorectomy Musculoskeletal Surgical History: Reports: Arthroscopic Knee Social & Family History - Family History Family Medical History: Noncontributory - Tobacco Use Smoking Status *Q: Never Smoker Second Hand Smoke Exposure: No - Caffeine Use Caffeine Use: Reports: None - Recreational Drug Use Recreational Drug Use: No - Living Situation & Occupation Living situation: Reports: , with Spouse Occupation: Retired ED ROS GENERAL - Review of Systems Review Of Systems: See Below Constitutional: Reports: Weakness. Denies: Fever, Chills HEENT: Reports: No Symptoms Respiratory: Reports: No Symptoms Cardiovascular: Reports: Chest Pain, Lightheadedness. Denies: Edema GI/Abdominal: Reports: Abdominal Pain : Reports: No Symptoms Musculoskeletal: Reports: No Symptoms Skin: Reports: No Symptoms Neurological: Reports: No Symptoms ED EXAM, GENERAL - Physical Exam Exam: See Below Exam Limited By: No Limitations General Appearance: Alert, WD/WN, Mild Distress Ears: Normal External Exam, Normal Canal, Normal TMs Nose: Normal Inspection Throat/Mouth: Normal Inspection, Normal Oropharynx, Normal Voice, No Airway Compromise Head: Atraumatic, Normocephalic Neck: Normal Inspection, Supple, Non-Tender, Full Range of Motion Respiratory/Chest: No Respiratory Distress, Lungs Clear, Normal Breath Sounds Cardiovascular: Normal Peripheral Pulses, Regular Rate, Rhythm, No Edema GI/Abdominal: Normal Bowel Sounds, Soft, Non-Tender, No Organomegaly Back Exam: Normal Inspection Extremities: Normal Inspection, Normal Capillary Refill Neurological: Alert, Oriented Skin Exam: Warm, Dry, Intact Course - Vital Signs Last Recorded V/S: Last Vital Signs Temp 97.3 F 01/12/19 16:56 Pulse 78 01/12/19 17:55 Resp 18 01/12/19 17:55 BP 134/79 01/12/19 17:55 Pulse Ox 99 01/12/19 17:55 - Orders/Labs/Meds Orders: Active Orders 24 hr Category Date Time Status Sodium Chloride 0.9% [Normal Saline] 1,000 ml Med 01/12/19 17:45 Active IV ASDIRECTED Medication Orders Sodium Chloride (Normal Saline) 1,000 mls @ 999 mls/hr IV ASDIRECTED MARY ALICE Last Admin: 01/12/19 17:54 Dose: 999 mls/hr Labs: Laboratory Tests 01/12/19 01/12/19 01/12/19 Range/Units 16:58 16:58 16:58 WBC 6.5 (5.0-10.0) 10^3/uL RBC 4.25 (4.00-5.50) 10^6/uL Hgb 12.3 (12.0-16.0) g/dL Hct 37.5 (37.0-47.0) % MCV 88.2 (82.0-94.0) fL MCH 28.9 (27.0-32.0) pg MCHC 32.8 L (33.0-38.0) g/dL RDW Coeff of Genaro 13.5 (11.0-15.0) % Plt Count 169 (150-400) 10^3/uL Neut % (Auto) 55.9 (35-85) % Lymph % (Auto) 34.1 (10-55) % Clay % (Auto) 8.3 (0-16) % Eos % (Auto) 1.2 (0-5) % Baso % (Auto) 0.5 (0-3) % Neut # (Auto) 3.66 (1.80-7.00) 10^3/uL Lymph # (Auto) 2.23 (1.00-4.80) 10^3/uL [place] # (Auto) 0.54 (0.00-0.80) 10^3/uL Eos # (Auto) 0.08 (0.00-0.45) 10^3/uL Baso # (Auto) 0.03 10^3/uL APTT 24.8 (23.2-32.3) SEC Sodium 139 (136-145) mEq/L Potassium 4.0 (3.5-5.0) mEq/L Chloride 103 (98-106) mEq/L Carbon Dioxide 28 (21-32) mmol/L BUN 17 (7-18) mg/dL Creatinine 0.8 (0.6-1.0) mg/dL Est Cr Clr Drug Dosing 60.90 mL/min Estimated GFR (MDRD) > 60 (>=60) mL/min Glucose 119 H (75-99) mg/dL Calcium 8.9 (8.4-10.1) mg/dL Magnesium 2.0 (1.8-2.4) mg/dL Total Bilirubin 0.3 (0.0-1.0) mg/dL AST 31 (15-37) U/L ALT 29 (12-78) U/L Alkaline Phosphatase 95 (46-116) U/L Troponin I < 0.017 (0.00-0.06) ng/mL Total Protein 7.1 (6.4-8.2) g/dL Albumin 3.3 L (3.4-5.0) g/dL Meds: Medications Generic Name Dose Route Start Last Admin Trade Name Claire PRN Reason Stop Dose Admin Sodium Chloride 1,000 mls @ 999 mls/hr 01/12/19 17:45 01/12/19 17:54 Normal Saline IV 999 mls/hr ASDIRECTED MARY ALICE Administration - Re-Assessments/Exams Free Text/Narrative Re-Assessment/Exam: 01/12/19 17:40 Reviewed labs and EKG with the pt and . All are normal at this time. Will give liter of fluids and reassess after that as to how she is doing. 01/12/19 19:23 Feels better after IV fluids. Requests to go home as she feels better. Will be discharged. Departure - Departure Time of Disposition: 19:24 Disposition: Home, Self-Care 01 Condition: Good Clinical Impression: Abdominal bloating - Discharge Information *PRESCRIPTION DRUG MONITORING PROGRAM REVIEWED*: Not Applicable *COPY OF PRESCRIPTION DRUG MONITORING REPORT IN PATIENT SHANTELL: Not Applicable Instructions: Abdominal Bloating Forms: ED Department Discharge Additional Instructions: Push fluids as much as possible rest diet as tolerated. recheck with PCP as needed or not improving - Problem List & Annotations (1) Abdominal bloating SNOMED Code(s): 083101748 Code(s): R14.0 - ABDOMINAL DISTENSION (GASEOUS) Status: Acute Current Visit: Yes - Problem List Review Problem List Initiated/Reviewed/Updated: Yes - My Orders Last 24 Hours: My Active Orders 01/12/19 17:45 Sodium Chloride 0.9% [Normal Saline] 1,000 ml IV ASDIRECTED - Assessment/Plan Last 24 Hours: My Active Orders 01/12/19 17:45 Sodium Chloride 0.9% [Normal Saline] 1,000 ml IV ASDIRECTED
[2019-01-12] MEDS ORDERED: Sodium Chloride 0.9% 1,000 ML IV SCH (17:45)
[2019-01-12 17:55] VITALS: BP 134/79; PULSE 78
== END 2019-01-12 19:35 | disposition home or self-care (01) ==
LOC: CC.ED 16:55
DX: R14.0 Abdominal distension (gaseous) (principal); I10 Essential (primary) hypertension; E78.00 Pure hypercholesterolemia, unspecified; J45.909 Unspecified asthma, uncomplicated; E03.9 Hypothyroidism, unspecified; Z79.02 Long term (current) use of antithrombotics/antiplatelets; Z79.890 Hormone replacement therapy; Z86.73 Personal history of transient ischemic attack (TIA), and cerebral infarction without residual deficits; Z88.0 Allergy status to penicillin; Z88.1 Allergy status to other antibiotic agents; Z88.2 Allergy status to sulfonamides; Z88.5 Allergy status to narcotic agent; Z88.6 Allergy status to analgesic agent; Z88.7 Allergy status to serum and vaccine; Z88.8 Allergy status to other drugs, medicaments and biological substances
CPT/HCPCS: 36415; 80053; 83735; 84484; 85025; 85730; 93005; 93010; 99284; 99285; J7030; 96360

== ENCOUNTER → 2019-05-15 | Day surgery (SDC) | payer MEDICARE, BC ==
[~2019-05-15] MED LIST: Propofol 200 MG/20 ML SDV IV ONE; fentaNYL 100 MCG/2 ML SDV IV ONE
[2019-05-15] MEDS: Lactated Ringers 1,000 ML IV SCH (08:49)
[2019-05-15 10:48] VITALS: BP 121/59; PULSE 65
--- NOTE | 2019-05-18 08:42 | OR ---
DATE OF OPERATION: 05/15/2019 PREOPERATIVE DIAGNOSIS: DYSPEPSIA, GASTROESOPHAGEAL REFLUX DISEASE. POSTOPERATIVE DIAGNOSIS: DYSPEPSIA, GASTROESOPHAGEAL REFLUX DISEASE. SURGEON: Jose Alberto Steiner MD PROCEDURE: FULL-LENGTH EGD WITH BIOPSIES X3, DANA. ANESTHESIA: MAC. COMPLICATIONS: None. SPECIMEN: 1. Antral biopsy x2. 2. Fundal biopsy x1. 3. Antral DANA. FINDINGS: 1. Full-length EGD. 2. Erosive gastritis, fundus and antrum. 3. Minimal spontaneous GERD without hernia, esophagitis, stricturing, or Myers's changes. RECOMMENDATIONS: The patient will be placed on proton pump therapy, a short course of Carafate to heal her gastritis, and she will have follow up with Dr. Garcia for DANA management and she should avoid all NSAIDs. INDICATIONS: The patient has been having some ongoing issues with dyspepsia, belching, and heartburn. Dr. Garcia sent her for diagnostic EGD. DESCRIPTION OF PROCEDURE: The patient was prepped and draped, placed in the left lateral decubitus position. A lubricated Olympus gastroscope was inserted over a bit, advanced to cricopharyngeus area, and easily intubated into the esophagus. The esophageal lining was benign in its entire course. The Z-line was crisp and sharp at 40 cm. There was no hernia present. Minimal spontaneous reflux seen. No distal esophagitis, stricturing, ulceration, or Myers's changes. The scope was advanced into the stomach, through the pylorus, and into the second portion of the duodenum. This and the duodenal bulb were unremarkable. The scope was brought back into the stomach and retroflexed. The upper fundus and cardia appeared benign. In the midbody of the fundus and throughout most of the antrum, the patient had evidence of active gastritis. There were a few areas of erosion along the greater curvature of the fundus and in the peripyloric region. Two biopsies of the antrum, 1 of the fundus and a CLOtest were obtained. Air was then suctioned of the stomach and scope removed without complication. COLIN/GERMAN /[id number]
== END ==
LOC: CC.SDS 08:25
PROVIDERS: ATTEND Family Medicine
DX: K21.9 Gastro-esophageal reflux disease without esophagitis (principal); K25.9 Gastric ulcer, unspecified as acute or chronic, without hemorrhage or perforation; K29.70 Gastritis, unspecified, without bleeding; E78.5 Hyperlipidemia, unspecified; I25.10 Atherosclerotic heart disease of native coronary artery without angina pectoris; E03.9 Hypothyroidism, unspecified; J45.909 Unspecified asthma, uncomplicated; I10 Essential (primary) hypertension; Z87.19 Personal history of other diseases of the digestive system; Z88.5 Allergy status to narcotic agent; Z88.2 Allergy status to sulfonamides; Z88.8 Allergy status to other drugs, medicaments and biological substances; Z79.890 Hormone replacement therapy; Z79.899 Other long term (current) drug therapy; Z90.49 Acquired absence of other specified parts of digestive tract; Z98.890 Other specified postprocedural states
CPT/HCPCS: 43239; 87081; J2704; J3010; J7120

== ENCOUNTER 2020-01-23 15:23 | Emergency (ER) | payer MEDICARE, BC ==
[2020-01-23 15:51] VITALS: BP 145/66; PULSE 75
--- NOTE | 2020-01-23 16:22 | EDM.PDOC ---
ED HPI GENERAL MEDICAL PROBLEM - General Chief Complaint: Abdominal Pain Stated Complaint: "Right sided pain" Time Seen by Provider: 01/23/20 15:36 Source of Information: Reports: Patient History Limitations: Reports: No Limitations - History of Present Illness INITIAL COMMENTS - FREE TEXT/NARRATIVE: Mary is a 74 year old female who presents to ER with complaints of midepigastric abdominal pain. States started getting worse over the last few days. Had IV fluids yesterday which stated did seem to help some yesterday but is worse today. She denies any fever. No nausea or vomiting. Had a BM yesterday, did not have to strain to go. No blood in stool. No urinary complaints. No alcohol use. Has not been eating or drinking well due to increased anxiety issues now for months. Is due to go to therapy at [place] on Saturday. Recently recovered from Covid. Was not noting GI issues with Covid. Onset: Gradual Duration: Day(s): Location: Reports: Abdomen Quality: Reports: Ache, Sharp Severity: Moderate Improves with: Reports: None Associated Symptoms: Reports: Loss of Appetite, Weakness. Denies: Confusion, Chest Pain, Cough, Fever/Chills, Nausea/Vomiting, Shortness of Breath Right Middle Abdomen Pain Score (Numeric/FACES): 8 - Related Data Allergies Allergy/AdvReac Type Severity Reaction Status Date / Time cyclobenzaprine HCl Allergy Cannot Verified 01/23/20 15:36 [From Flexeril] Remember hydromorphone [From Dilaudid] Allergy Cannot Verified 01/23/20 15:36 Remember methylprednisolone sodium Allergy Edema Verified 01/23/20 15:36 succinate [From Solu-Medrol] morphine Allergy Hallucinati Verified 01/23/20 15:36 ons promethazine HCl Allergy Hypotension Verified 01/23/20 15:36 [From Phenergan] Tetanus Vaccines and Toxoid Allergy Edema Verified 01/23/20 15:36 [Tetanus Vaccines & Toxoid] levofloxacin AdvReac Mild Nausea Verified 01/23/20 15:36 acetaminophen AdvReac Nausea and Verified 01/23/20 15:36 [From Darvocet-N 100] Vomiting codeine AdvReac Vomiting Verified 01/23/20 15:36 dipyridamole [From Aggrenox] AdvReac Vomiting Verified 01/23/20 15:36 primidone AdvReac Vomiting Verified 01/23/20 15:36 propoxyphene napsylate AdvReac Nausea and Verified 01/23/20 15:36 [From Darvocet-N 100] Vomiting sulfamethoxazole AdvReac Nausea and Verified 01/23/20 15:36 [From Bactrim] Vomiting trimethoprim [From Bactrim] AdvReac Nausea and Verified 01/23/20 15:36 Vomiting Home Meds: Home Meds Atenolol [Tenormin] 25 mg PO DAILY 05/28/13 [History] Travoprost [Travatan Z 0.004% Ophth Soln] 1 drop EYEBOTH QPM 05/28/13 [History] atorvaSTATin [Lipitor] 40 mg PO DAILY 05/28/13 [History] cycloSPORINE [Restasis] 1 each OP BID 05/28/13 [History] prednisoLONE acetate [Pred Forte 1% Ophth Susp] 1 drop EYEBOTH ASDIRECTED PRN 12/11/14 [History] Magnesium 250 mg PO DAILY 01/14/15 [History] Clopidogrel Bisulfate [Clopidogrel] 75 mg PO DAILY 01/22/16 [History] Albuterol [Ventolin HFA] 2 puff INH ASDIRECTED PRN 04/11/16 [History] Mometasone Furoate [Nasonex [place]] 2 spray ALYSSA ASDIRECTED PRN 04/11/16 [History] estradioL [Estradiol] 1 mg PO DAILY 05/16/18 [History] Cholecalciferol (Vitamin D3) [Vitamin D3] 5,000 unit PO DAILY 05/14/19 [History] Levothyroxine Sodium 88 mcg PO DAILY 05/14/19 [History] Lidocaine 2% [Xylocaine 2% Jelly] 5 ml TOP ASDIRECTED PRN 05/14/19 [History] Ubidecarenone [Co Q-10] 100 mg PO DAILY 05/14/19 [History] valACYclovir HCl [Valtrex] 500 mg PO ASDIRECTED PRN 05/14/19 [History] Lutein/Minerals/Vit A,C & E [Ocuvite] 1 tab PO DAILY 05/15/19 [History] Escitalopram [Lexapro] 20 mg PO DAILY 12/01/19 [History] LORazepam [Ativan] 0.5 mg PO TID PRN 12/31/19 [History] Past Medical History HEENT History: Reports: Cataract, Glaucoma Other HEENT History: EAR INFECTIONS Cardiovascular History: Reports: High Cholesterol, Hypertension Other Cardiovascular History: VALVE INSUFFICIENCY Respiratory History: Reports: Asthma Gastrointestinal History: Reports: Diverticulosis, Irritable Bowel Syndrome Genitourinary History: Reports: Other (See Below) Other Genitourinary History: 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: Neurological History: Reports: CVA, Headaches, Chronic, TIA Psychiatric History: Reports: Anxiety, Depression Endocrine/Metabolic History: Reports: Hypothyroidism Hematologic History: Reports: Blood Transfusion(s) Other Hematologic History: 1980-blood transfusion - Infectious Disease History Infectious Disease History: Reports: Shingles - Past Surgical History HEENT Surgical History: Reports: Cataract Surgery Other Cardiovascular Surgeries/Procedures: ANGIOGRAM GI Surgical History: Reports: Appendectomy, Cholecystectomy, Colonoscopy, EGD Female Surgical History: Reports: Hysterectomy, Oophorectomy Musculoskeletal Surgical History: Reports: Arthroscopic Knee Social & Family History - Family History Family Medical History: No Pertinent Family History - Tobacco Use Tobacco Use Status *Q: Never Tobacco User Second Hand Smoke Exposure: No - Caffeine Use Caffeine Use: Reports: None - Recreational Drug Use Recreational Drug Use: No - Living Situation & Occupation Living situation: Reports: , with Spouse Occupation: Retired ED ROS GENERAL - Review of Systems Review Of Systems: See Below Constitutional: Reports: Malaise, Weakness, Fatigue, Decreased Appetite. Denies: Fever, Chills HEENT: Reports: No Symptoms Respiratory: Denies: Shortness of Breath, Cough Cardiovascular: Denies: Chest Pain, Edema, Lightheadedness Endocrine: Reports: Fatigue GI/Abdominal: Reports: Abdominal Pain, Decreased Appetite. Denies: Hematochezia, Melena, Nausea : Reports: No Symptoms Musculoskeletal: Reports: No Symptoms Skin: Reports: No Symptoms Neurological: Reports: Weakness Psychiatric: Reports: Anxiety, Depression ED EXAM, GI/ABD - Physical Exam Exam: See Below Exam Limited By: No Limitations General Appearance: Alert, WD/WN, Anxious Ears: Normal External Exam, Normal TMs Nose: Normal Inspection, No Blood Throat/Mouth: Normal Inspection, Normal Oropharynx Head: Normocephalic Neck: Normal Inspection, Supple, Non-Tender Respiratory/Chest: No Respiratory Distress, Lungs Clear, Normal Breath Sounds Cardiovascular: Regular Rate, Rhythm GI/Abdominal Exam: Normal Bowel Sounds, Soft, Tender (midepigastric area). No: Distended Extremities: Normal Inspection, No Pedal Edema Neurological: Alert, Oriented Psychiatric: Anxious Course - Vital Signs Last Recorded V/S: Last Vital Signs Temp 98.0 F 01/23/20 15:50 Pulse 75 01/23/20 15:50 Resp 18 01/23/20 15:50 BP 145/66 H 01/23/20 15:50 Pulse Ox 95 01/23/20 15:50 - Orders/Labs/Meds Orders: Active Orders 24 hr Category Date Time Status Abdomen 2V AP Flat Upright [CR] Stat Exams 01/23/20 15:53 Taken Labs: Laboratory Tests 01/23/20 01/23/20 01/23/20 Range/Units 15:53 15:53 15:53 WBC 6.8 (5.0-10.0) 10^3/uL RBC 4.31 (4.00-5.50) 10^6/uL Hgb 12.2 (12.0-16.0) g/dL Hct 38.5 (37.0-47.0) % MCV 89.3 (82.0-94.0) fL MCH 28.3 (27.0-32.0) pg MCHC 31.7 L (33.0-38.0) g/dL RDW Coeff of Genaro 14.1 (11.0-15.0) % Plt Count 248 (150-400) 10^3/uL Neut % (Auto) 68.5 (35-85) % Lymph % (Auto) 22.6 (10-55) % [place] % (Auto) 8.0 (0-16) % Eos % (Auto) 0.3 (0-5) % Baso % (Auto) 0.6 (0-3) % Neut # (Auto) 4.64 (1.80-7.00) 10^3/uL Lymph # (Auto) 1.53 (1.00-4.80) 10^3/uL [place] # (Auto) 0.54 (0.00-0.80) 10^3/uL Eos # (Auto) 0.02 (0.00-0.45) 10^3/uL Baso # (Auto) 0.04 10^3/uL Sodium 138 (136-145) mEq/L Potassium 4.2 D (3.5-5.0) mEq/L Chloride 102 (98-106) mEq/L Carbon Dioxide 30 (21-32) mmol/L BUN 7 (7-18) mg/dL Creatinine 1.0 (0.6-1.0) mg/dL Est Cr Clr Drug Dosing 48.00 mL/min Estimated GFR (MDRD) 54 L (>=60) mL/min Glucose 155 H D (75-99) mg/dL Calcium 9.4 (8.4-10.1) mg/dL Total Bilirubin 0.3 (0.0-1.0) mg/dL AST 28 (15-37) U/L ALT 29 (12-78) U/L Alkaline Phosphatase 77 (46-116) U/L C-Reactive Protein 0.4 (0.2-0.8) mg/dL Total Protein 7.2 (6.4-8.2) g/dL Albumin 3.1 L (3.4-5.0) g/dL Amylase 46 (25-115) U/L Lipase 108 (73-393) U/L Urine Color Yellow (YELLOW) Urine Appearance Clear (CLEAR) Urine pH 6.0 (4.5-8.0) Ur Specific [place] 1.020 (1.003-1.020) Urine Protein Negative (NEGATIVE) mg/dL Urine Glucose (UA) Negative (NEGATIVE) mg/dL Urine Ketones Negative (NEGATIVE) mg/dL Urine Occult Blood Negative (NEGATIVE) Urine Nitrite Negative (NEGATIVE) Urine Bilirubin Negative (NEGATIVE) Urine Urobilinogen 0.2 (0.2-1.0) EU/dL Ur Leukocyte Esterase Negative (NEGATIVE) U Hyaline Cast (Auto) Cancelled Urine RBC Cancelled Urine Red Cell Clumps Cancelled Urine WBC Cancelled Urine WBC Clumps Cancelled Ur Epithelial Cells Cancelled Ur Squamous Epith Cells Cancelled Ur Renal Epithelial Cell Cancelled Jordan Biurate Crystals Cancelled Calcium Oxalate Crystal Cancelled Uric Acid Crystals Cancelled Triple Phos Crystals Cancelled Other Crystals Cancelled Amorphous Sediment Cancelled Urine Bacteria Cancelled Granular Casts (Auto) Cancelled RBC Casts Cancelled WBC Casts Cancelled Urine Mucus Cancelled Urine Other Cancelled Urine Trichomonas Cancelled Urine Yeast Cancelled Urine Sperm Cancelled Urinalysis Comment Cancelled - Re-Assessments/Exams Free Text/Narrative Re-Assessment/Exam: 01/22 Labs are all noted, stable. Abdominal xray shows moderate amount of stool, no obstruction. Discussed with patient. Offered GI cocktail but does not feel she could tolerate it. Does have Protonix at home that was prescribed but never used. Will start this today. Take Miralax to help with constipation. Follow up if pain continues or worsens. Departure - Departure Time of Disposition: 16:20 Disposition: Home, Self-Care 01 Condition: Fair Clinical Impression: Gastritis - Discharge Information *PRESCRIPTION DRUG MONITORING PROGRAM REVIEWED*: No *COPY OF PRESCRIPTION DRUG MONITORING REPORT IN PATIENT SHANTELL: No Instructions: Gastritis, Adult, [id number] Referrals: PCP,Unknown [Primary Care Provider] - Forms: ED Department Discharge Additional Instructions: 1. Push fluids 2. Limit caffeine 3. Start PPI that has at home 4. Stool softener or Miralax 5. Dixon diet 6. Follow up if develop fever, worsening pain, vomiting, etc. Sepsis Event Note (ED) - Evaluation Sepsis Screening Result: No Definite Risk - My Orders Last 24 Hours: My Active Orders 01/23/20 15:53 Abdomen 2V AP Flat Upright [CR] Stat - Assessment/Plan Last 24 Hours: My Active Orders 01/23/20 15:53 Abdomen 2V AP Flat Upright [CR] Stat
== END 2020-01-23 16:28 | disposition home or self-care (01) ==
LOC: CC.ED 15:23
DX: K29.70 Gastritis, unspecified, without bleeding (principal); E78.00 Pure hypercholesterolemia, unspecified; I10 Essential (primary) hypertension; J45.909 Unspecified asthma, uncomplicated; F41.9 Anxiety disorder, unspecified; F32.9 Major depressive disorder, single episode, unspecified; E03.9 Hypothyroidism, unspecified; Z88.7 Allergy status to serum and vaccine; Z88.1 Allergy status to other antibiotic agents; Z88.6 Allergy status to analgesic agent; Z88.5 Allergy status to narcotic agent; Z88.2 Allergy status to sulfonamides; Z88.8 Allergy status to other drugs, medicaments and biological substances; Z79.02 Long term (current) use of antithrombotics/antiplatelets; Z79.899 Other long term (current) drug therapy; Z86.73 Personal history of transient ischemic attack (TIA), and cerebral infarction without residual deficits
CPT/HCPCS: 36415; 74019; 80053; 81003; 82150; 83690; 85025; 86140; 99284; 99284-25

== ENCOUNTER 2020-03-16 20:16 | Emergency (ER) | payer MEDICARE, BC ==
[2020-03-16] MEDS ORDERED: Lactated Ringers 1,000 ML IV ONE (20:35)
--- NOTE | 2020-03-16 20:36 | EDM.PDOC ---
ED HPI GENERAL MEDICAL PROBLEM - General Chief Complaint: General Stated Complaint: weakness, nausea/vomiting Time Seen by Provider: 03/16/20 20:25 Source of Information: Reports: Patient History Limitations: Reports: No Limitations - History of Present Illness INITIAL COMMENTS - FREE TEXT/NARRATIVE: states that she was at the dentist for cleaning today and after returning home she became ill with nausea and had episode of diarrhea. She vomited multiple times and felt extremely weak where she couldn't walk and get up by herself. was able to help her up. She continues to be nauseated. She feels shaky. Denies being around anyone that has been sick or has not ate anything that others haven't ate. Denies fever or chills. Location: Reports: Generalized Associated Symptoms: Reports: Nausea/Vomiting, Other (diarrhea) Lower Back Pain Score (Numeric/FACES): 3 - Related Data Allergies Allergy/AdvReac Type Severity Reaction Status Date / Time cyclobenzaprine HCl Allergy Cannot Verified 03/16/20 20:19 [From Flexeril] Remember hydromorphone [From Dilaudid] Allergy Cannot Verified 03/16/20 20:19 Remember methylprednisolone sodium Allergy Edema Verified 03/16/20 20:19 succinate [From Solu-Medrol] morphine Allergy Hallucinati Verified 03/16/20 20:19 ons promethazine HCl Allergy Hypotension Verified 03/16/20 20:19 [From Phenergan] Tetanus Vaccines and Toxoid Allergy Edema Verified 03/16/20 20:19 [Tetanus Vaccines & Toxoid] levofloxacin AdvReac Mild Nausea Verified 03/16/20 20:19 acetaminophen AdvReac Nausea and Verified 03/16/20 20:19 [From Darvocet-N 100] Vomiting codeine AdvReac Vomiting Verified 03/16/20 20:19 dipyridamole [From Aggrenox] AdvReac Vomiting Verified 03/16/20 20:19 primidone AdvReac Vomiting Verified 03/16/20 20:19 propoxyphene napsylate AdvReac Nausea and Verified 03/16/20 20:19 [From Darvocet-N 100] Vomiting sulfamethoxazole AdvReac Nausea and Verified 03/16/20 20:19 [From Bactrim] Vomiting trimethoprim [From Bactrim] AdvReac Nausea and Verified 03/16/20 20:19 Vomiting Home Meds: Home Meds Atenolol [Tenormin] 25 mg PO DAILY 05/28/13 [History] Travoprost [Travatan Z 0.004% Oph Soln] 1 drop EYEBOTH QPM 05/28/13 [History] atorvaSTATin [Lipitor] 40 mg PO DAILY 05/28/13 [History] cycloSPORINE [Restasis] 1 each OP BID 05/28/13 [History] prednisoLONE acetate [Pred Forte 1% Oph Susp] 1 drop EYEBOTH ASDIRECTED PRN 12/11/14 [History] Magnesium 250 mg PO DAILY 01/14/15 [History] Clopidogrel Bisulfate [Clopidogrel] 75 mg PO DAILY 01/22/16 [History] Albuterol [Ventolin HFA] 2 puff INH ASDIRECTED PRN 04/11/16 [History] Mometasone Furoate [Nasonex [place]] 2 spray ALYSSA ASDIRECTED PRN 04/11/16 [History] estradioL [Estradiol] 1 mg PO DAILY 05/16/18 [History] Cholecalciferol (Vitamin D3) [Vitamin D3] 5,000 unit PO DAILY 05/14/19 [History] Levothyroxine Sodium 88 mcg PO DAILY 05/14/19 [History] Lidocaine 2% [Xylocaine 2% Jelly] 5 ml TOP ASDIRECTED PRN 05/14/19 [History] Ubidecarenone [Co Q-10] 100 mg PO DAILY 05/14/19 [History] valACYclovir HCl [Valtrex] 500 mg PO ASDIRECTED PRN 05/14/19 [History] Lutein/Minerals/Vit A,C & E [Ocuvite] 1 tab PO DAILY 05/15/19 [History] Escitalopram [Lexapro] 20 mg PO DAILY 12/01/19 [History] LORazepam [Ativan] 0.5 mg PO TID 12/31/19 [History] Past Medical History HEENT History: Reports: Cataract, Glaucoma Other HEENT History: EAR INFECTIONS Cardiovascular History: Reports: High Cholesterol, Hypertension Other Cardiovascular History: VALVE INSUFFICIENCY Respiratory History: Reports: Asthma Gastrointestinal History: Reports: Diverticulosis, Irritable Bowel Syndrome Genitourinary History: Reports: Other (See Below) Other Genitourinary History: 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: Neurological History: Reports: CVA, Headaches, Chronic, TIA Psychiatric History: Reports: Anxiety, Depression Endocrine/Metabolic History: Reports: Hypothyroidism Hematologic History: Reports: Blood Transfusion(s) Other Hematologic History: 1980-blood transfusion - Infectious Disease History Infectious Disease History: Reports: Shingles - Past Surgical History HEENT Surgical History: Reports: Cataract Surgery Other Cardiovascular Surgeries/Procedures: ANGIOGRAM GI Surgical History: Reports: Appendectomy, Cholecystectomy, Colonoscopy, EGD Female Surgical History: Reports: Hysterectomy, Oophorectomy Musculoskeletal Surgical History: Reports: Arthroscopic Knee Social & Family History - Family History Family Medical History: No Pertinent Family History - Caffeine Use Caffeine Use: Reports: None - Living Situation & Occupation Living situation: Reports: , with Spouse Occupation: Retired ED ROS GENERAL - Review of Systems Review Of Systems: See Below Constitutional: Reports: Weakness. Denies: Fever, Chills HEENT: Reports: No Symptoms Respiratory: Reports: No Symptoms Cardiovascular: Reports: No Symptoms GI/Abdominal: Reports: Diarrhea, Nausea, Vomiting : Reports: No Symptoms Neurological: Reports: Weakness. Denies: Headache ED EXAM, GENERAL - Physical Exam Exam: See Below Exam Limited By: No Limitations General Appearance: Alert, WD/WN, Mild Distress Ears: Normal External Exam, Normal Canal, Normal TMs Throat/Mouth: Normal Inspection, Normal Oropharynx Head: Atraumatic, Normocephalic Neck: Normal Inspection, Supple, Non-Tender Respiratory/Chest: No Respiratory Distress, Lungs Clear, Normal Breath Sounds Cardiovascular: Regular Rate, Rhythm, No Edema GI/Abdominal: Normal Bowel Sounds, Soft, Non-Tender Extremities: Normal Inspection, Non-Tender, No Pedal Edema, Normal Capillary Refill Neurological: Alert, Oriented Psychiatric: Anxious Skin Exam: Warm, Dry, Intact Course - Vital Signs Last Recorded V/S: Last Vital Signs Temp 99.3 F 03/16/20 20:59 Pulse 83 03/16/20 20:59 Resp BP 150/72 H 03/16/20 20:59 Pulse Ox 100 03/16/20 20:59 - Orders/Labs/Meds Orders: Active Orders 24 hr Category Date Time Status Lactated Ringers [Ringers, Lactated] 1,000 ml Med 03/16/20 20:35 Active IV .BOLUS Medication Orders Lactated Ringer's (Ringers, Lactated) 1,000 mls @ 999 mls/hr IV .BOLUS ONE Stop: 03/16/20 21:35 Last Admin: 03/16/20 20:47 Dose: 999 mls/hr Documented by: TATE Labs: Laboratory Tests 03/16/20 03/16/20 03/16/20 Range/Units 20:48 20:48 20:49 WBC 9.3 (5.0-10.0) 10^3/uL RBC 4.71 (4.00-5.50) 10^6/uL Hgb 13.6 (12.0-16.0) g/dL Hct 41.1 (37.0-47.0) % MCV 87.3 (82.0-94.0) fL MCH 28.9 (27.0-32.0) pg MCHC 33.1 (33.0-38.0) g/dL RDW Coeff of Genaro 14.8 (11.0-15.0) % Plt Count 164 (150-400) 10^3/uL Add Manual Diff Yes Neutrophils % (Manual) 82 (35-85) % Band Neutrophils % 8 H (0-5) % Lymphocytes % (Manual) 6 L (21-55) % Monocytes % (Manual) 3 (2-12) % Eosinophils % (Manual) 1 (0-5) % Sodium 140 (136-145) mEq/L Potassium 4.0 (3.5-5.0) mEq/L Chloride 103 (98-106) mEq/L Carbon Dioxide 29 (21-32) mmol/L BUN 27 H D (7-18) mg/dL Creatinine 1.0 (0.6-1.0) mg/dL Est Cr Clr Drug Dosing 45.95 mL/min Estimated GFR (MDRD) 54 L (>=60) mL/min Glucose 158 H (75-99) mg/dL Calcium 9.0 (8.4-10.1) mg/dL Total Bilirubin 0.6 (0.0-1.0) mg/dL AST 29 (15-37) U/L ALT 36 (12-78) U/L Alkaline Phosphatase 101 (46-116) U/L C-Reactive Protein 2.2 H (0.2-0.8) mg/dL Total Protein 7.6 (6.4-8.2) g/dL Albumin 3.6 (3.4-5.0) g/dL Urine Color Yellow (YELLOW) Urine Appearance Clear (CLEAR) Urine pH 5.5 (4.5-8.0) Ur Specific [place] 1.025 H (1.003-1.020) Urine Protein Negative (NEGATIVE) mg/dL Urine Glucose (UA) Negative (NEGATIVE) mg/dL Urine Ketones Negative (NEGATIVE) mg/dL Urine Occult Blood Trace-intact H (NEGATIVE) Urine Nitrite Negative (NEGATIVE) Urine Bilirubin Negative (NEGATIVE) Urine Urobilinogen 0.2 (0.2-1.0) EU/dL Ur Leukocyte Esterase Negative (NEGATIVE) Urine RBC 0-5 (0-5) /HPF Urine WBC Not seen (0-5) /HPF Ur Epithelial Cells Many H (NOT SEEN) /HPF Urine Mucus Few H (NOT SEEN) /HPF Meds: Medications Generic Name Dose Route Start Last Admin Trade Name Freq PRN Reason Stop Dose Admin Lactated Ringer's 1,000 mls @ 999 mls/hr 03/16/20 20:35 03/16/20 20:47 Ringers, Lactated IV 03/16/20 21:35 999 mls/hr .BOLUS ONE Administration Discontinued Medications Generic Name Dose Route Start Last Admin Trade Name Freq PRN Reason Stop Dose Admin Ondansetron HCl 4 mg 03/16/20 20:48 03/16/20 21:04 Zofran IVPUSH 03/16/20 20:49 4 mg NOW STA Administration - Re-Assessments/Exams Free Text/Narrative Re-Assessment/Exam: 03/16/20 21:30 liter of fluids infused. Discussed lab results with pt. She is feeling better. No further vomiting since being here. Is able to be up walking around. will discharge with zofran if needed tonight. Departure - Departure Time of Disposition: 21:33 Disposition: Home, Self-Care 01 Clinical Impression: Vomiting Qualifiers: Vomiting type: unspecified Vomiting Intractability: unspecified Nausea presence: with nausea Qualified Code(s): R11.2 - Nausea with vomiting, unspecified - Discharge Information *PRESCRIPTION DRUG MONITORING PROGRAM REVIEWED*: Not Applicable *COPY OF PRESCRIPTION DRUG MONITORING REPORT IN PATIENT SHANTELL: Not Applicable Referrals: Jose Alberto Steiner MD [Primary Care Provider] - Forms: ED Department Discharge Additional Instructions: push fluids at home. zofran - tae every 6 hours if needed for nausea or vomiting recheck in clinic if any new concerns. Sepsis Event Note (ED) - Focused Exam Vital Signs: Vital Signs Temp Pulse BP Pulse Ox 03/16/20 20:59 99.3 F 83 150/72 H 100 - Problem List & Annotations (1) Vomiting SNOMED Code(s): 677913302 Code(s): R11.10 - VOMITING, UNSPECIFIED Status: Acute Priority: High Current Visit: Yes Qualifiers: Vomiting type: unspecified Vomiting Intractability: unspecified Nausea presence: with nausea Qualified Code(s): R11.2 - Nausea with vomiting, u nspecified - Problem List Review Problem List Initiated/Reviewed/Updated: Yes - My Orders Last 24 Hours: My Active Orders 03/16/20 20:35 Lactated Ringers [Ringers, Lactated] 1,000 ml IV .BOLUS - Assessment/Plan Last 24 Hours: My Active Orders 03/16/20 20:35 Lactated Ringers [Ringers, Lactated] 1,000 ml IV .BOLUS
[2020-03-16] MEDS ORDERED: Ondansetron 4 MG/2 ML SDV IVPUSH STA (20:48)
[2020-03-16 21:01] VITALS: BP 150/72; PULSE 83
[2020-03-16] MEDS ORDERED: Ondansetron 4 MG Tab.DIS ONE (21:19)
[2020-03-16] MEDS ORDERED: Take Home: Ondansetron 4 MG Tab.DIS, 2 Tab Pack PO ONE (21:33)
== END 2020-03-16 21:50 | disposition home or self-care (01) ==
LOC: CC.ED 20:16
DX: R11.2 Nausea with vomiting, unspecified (principal); R19.7 Diarrhea, unspecified; R53.1 Weakness; M54.5 Low back pain; E78.00 Pure hypercholesterolemia, unspecified; I10 Essential (primary) hypertension; J45.909 Unspecified asthma, uncomplicated; E03.9 Hypothyroidism, unspecified; Z86.73 Personal history of transient ischemic attack (TIA), and cerebral infarction without residual deficits; Z88.8 Allergy status to other drugs, medicaments and biological substances; Z88.5 Allergy status to narcotic agent; Z88.7 Allergy status to serum and vaccine; Z88.1 Allergy status to other antibiotic agents; Z88.2 Allergy status to sulfonamides; Z79.02 Long term (current) use of antithrombotics/antiplatelets; Z79.899 Other long term (current) drug therapy
CPT/HCPCS: 36415; 80053; 81001; 85025; 86140; 96374; 99284; 99284-25; A9270-GY; J2405; J7120

== ENCOUNTER 2021-12-27 14:11 | Observation (INO) | payer MEDICARE, BC ==
[2021-12-27] MEDS ORDERED: Sodium Chloride 0.9% 10 ML Syringe FLUSH PRN (14:28)
[2021-12-27 14:56] LABS: CHLORIDE,CL 101 mEq/L (98-106); SODIUM,NA 141 mEq/L (136-145)
[2021-12-27 14:58] LABS: ESTIMATED GFR 66 mL/min (>=60)
[2021-12-27] MEDS ORDERED: Albuterol 8 GM Inhaler INH PRN (16:46)
[2021-12-27] MEDS ORDERED: MOMETASONE FUROATE 17 GM NAS PRN (16:46)
[2021-12-27] MEDS ORDERED: prednisoLONE Acetate 1% Ophth Susp 5 ML Bottle EYEBOTH PRN (16:46)
[2021-12-27] MEDS ORDERED: LORazepam 0.5 MG Tab **OWN MED PO SCH (20:00)
[2021-12-27] MEDS ORDERED: TRAVOPROST EYEBOTH SCH (20:00)
[2021-12-27] MEDS: CYCLOSPORINE EYEBOTH SCH (20:05)
[2021-12-27] MEDS: LORazepam 0.5 MG Tab **OWN MED PO PRN (21:54)
[2021-12-27] MEDS ORDERED: Acetaminophen 325 MG Tab PO PRN (22:07)
[2021-12-28 00:02] VITALS: PULSE 65
[2021-12-28] MEDS: LORazepam 0.5 MG Tab **OWN MED PO PRN (07:47)
[2021-12-28 07:48] VITALS: BP 124/69
[2021-12-28] MEDS: CYCLOSPORINE EYEBOTH SCH (07:48)
[2021-12-28] MEDS ORDERED: ESCITALOPRAM 20 MG PO SCH (08:00)
[2021-12-28] MEDS ORDERED: Beta-Carotene (Vitamin A) w/Vitamin C & E plus Minerals Tab PO SCH (08:00)
[2021-12-28] MEDS ORDERED: ESTRADIOL 1 MG PO SCH (08:00)
[2021-12-28] MEDS ORDERED: Levothyroxine 88 MCG Tab **OWN MED PO SCH (08:00)
[2021-12-28] MEDS ORDERED: Clopidogrel 75 MG Tab **OWN MED PO SCH (08:00)
[2021-12-28] MEDS ORDERED: ATORVASTATIN 40 MG PO SCH (08:00)
[2021-12-28] MEDS ORDERED: UBIDECARENONE 100 MG PO SCH (08:00)
[2021-12-28] MEDS ORDERED: FUROSEMIDE 40 MG PO SCH (08:00)
[2021-12-28] MEDS ORDERED: ATENOLOL 25 MG PO SCH (08:00)
[2021-12-28] MEDS ORDERED: Cholecalciferol (Vitamin D3) 5,000 UNIT Tab PO SCH (08:00)
[2021-12-28] MEDS ORDERED: Enoxaparin 30 MG/0.3 ML Syringe SUBCUT SCH (11:43)
[2021-12-28] MEDS ORDERED: Acetaminophen 325 MG Tab PO PRN (11:43)
[2021-12-28] MEDS ORDERED: Ondansetron 4 MG Tab.DIS PO PRN (11:43)
[2021-12-28] MEDS ORDERED: Ondansetron 4 MG/2 ML SDV IV PRN (11:43)
== END 2021-12-28 11:04 | disposition home or self-care (01) ==
LOC: CC.ED 14:11 → CC.MS 15:42
PROVIDERS: ADMIT Nurse Practitioner Family; ATTEND Nurse Practitioner Family
DX: G45.9 Transient cerebral ischemic attack, unspecified (principal); E78.00 Pure hypercholesterolemia, unspecified; I10 Essential (primary) hypertension; J45.909 Unspecified asthma, uncomplicated; F41.9 Anxiety disorder, unspecified; F32.A Depression, unspecified; E03.9 Hypothyroidism, unspecified; Z98.890 Other specified postprocedural states; Z88.8 Allergy status to other drugs, medicaments and biological substances; Z88.5 Allergy status to narcotic agent; Z88.7 Allergy status to serum and vaccine; Z88.2 Allergy status to sulfonamides; Z79.899 Other long term (current) drug therapy; Z79.890 Hormone replacement therapy
CPT/HCPCS: 36415; 70450; 80053; 81003; 84484; 85025; 85730; 86140; 93005; 93010; 99217; 99220; A9270-GY; G0378

== ENCOUNTER 2022-11-08 17:57 | Emergency (ER) | payer MEDICARE, BC ==
[2022-11-08] MEDS: Aspirin 81 MG Tab.Chew PO ONE (18:13)
[2022-11-08 18:24] LABS: BASOPHILS ABSOLUTE AUTO 0.03 10^3/uL (0.00-0.50); BASOPHILS PERCENT AUTO 0.3 % (0-1); EOSINOPHILS ABSOLUTE AUTO 0.06 10^3/uL (0.00-1.50); EOSINOPHILS PERCENT AUTO 0.6 % (0-6); HEMATOCRIT 37.2 % (37.0-47.0); HEMOGLOBIN 12.6 g/dL (12.0-16.0); IMMATURE GRAN ABSOLUTE AUTO 0.03 10^3/uL (0.00-0.49); IMMATURE GRAN PERCENT AUTO 0.3 % (0.0-4.9); LYMPHOCYTES PERCENT AUTO 26.5 % (24-44); MEAN CORPUSCULAR HEMOGLOBIN 30.4 pg (27.0-32.0); MEAN CORPUSCULAR HGB CONC 33.9 g/dL (32.0-36.0); MEAN CORPUSCULAR VOLUME 89.9 fL (83.0-97.0); MONOCYTES ABSOLUTE AUTO 0.65 10^3/uL (0.00-1.50); MONOCYTES PERCENT AUTO 6.9 % (0-10); NEUTROPHILS ABSOLUTE AUTO 6.16 x10^3/uL (1.80-8.00); NEUTROPHILS PERCENT AUTO 65.4 % (41-71); PLATELET COUNT,PLT 182 10^3/uL (150-400); RED BLOOD CELL COUNT 4.14 x10^6/uL (4.00-5.50); WHITE BLOOD CELL COUNT,WBC 9.4 10^3/uL (4.0-11.0)
[2022-11-08 18:40] LABS: ALANINE AMINOTRANSFERASE,ALT 28 U/L (12-78); ALKALINE PHOSPHATASE 90 U/L (46-116); ASPARTATE AMNIOTRANSFERASE,AST 23 U/L (15-37); BILIRUBIN TOTAL 0.4 mg/dL (0.0-1.0); BLOOD UREA NITROGEN,BUN 16 mg/dL (7-18); C-REACTIVE PROTEIN 0.42 mg/dL (<=0.30); CALCIUM 8.5 mg/dL (8.4-10.1); CARBON DIOXIDE,CO2 33 mmol/L (21-32); CHLORIDE,CL 100 mEq/L (98-106); GLUCOSE RANDOM 150 mg/dL (75-99); MAGNESIUM 1.9 mg/dL (1.8-2.4); POTASSIUM,K 3.6 mEq/L (3.5-5.0); PROTEIN TOTAL,TP 6.6 g/dL (6.4-8.2); SODIUM,NA 139 mEq/L (136-145)
[2022-11-08 18:41] LABS: ESTIMATED GFR 58 mL/min (>=60)
[2022-11-08 20:19] VITALS: BP 119/60; PULSE 62
== END 2022-11-08 21:50 | disposition home or self-care (01) ==
LOC: CC.ED 17:57
DX: R07.9 Chest pain, unspecified (principal); E03.9 Hypothyroidism, unspecified; I10 Essential (primary) hypertension; E78.00 Pure hypercholesterolemia, unspecified; Z86.73 Personal history of transient ischemic attack (TIA), and cerebral infarction without residual deficits; Z88.5 Allergy status to narcotic agent; Z88.8 Allergy status to other drugs, medicaments and biological substances; Z88.7 Allergy status to serum and vaccine; Z88.2 Allergy status to sulfonamides; Z88.6 Allergy status to analgesic agent; Z88.1 Allergy status to other antibiotic agents; Z79.899 Other long term (current) drug therapy
CPT/HCPCS: 36415; 71046; 80053; 83735; 84484; 85025; 86140; 93005; 93010; 99284; 99285; A9270-GY

== ENCOUNTER → 2022-11-30 | Day surgery (SDC) | payer MEDICARE, BC ==
[~2022-11-30] MED LIST changes: +Ketamine 200 MG/20 ML MDV ONE; +Lactated Ringers 1,000 ML IV SCH; +Lidocaine 2% 20 ML MDV ONE; -Propofol 200 MG/20 ML SDV IV ONE; +Propofol 200 MG/20 ML SDV ONE; -fentaNYL 100 MCG/2 ML SDV IV ONE; +fentaNYL 50 MCG/ML SDV ONE
[2022-11-30 10:56] VITALS: BP 149/62; PULSE 62
== END ==
LOC: CC.SDS 06:47
PROVIDERS: ATTEND Family Medicine
DX: K31.7 Polyp of stomach and duodenum (principal); K31.89 Other diseases of stomach and duodenum; R13.10 Dysphagia, unspecified; K29.80 Duodenitis without bleeding; E03.9 Hypothyroidism, unspecified; K21.9 Gastro-esophageal reflux disease without esophagitis; E11.9 Type 2 diabetes mellitus without complications; E78.5 Hyperlipidemia, unspecified; F32.A Depression, unspecified; F41.9 Anxiety disorder, unspecified; G47.00 Insomnia, unspecified; I25.10 Atherosclerotic heart disease of native coronary artery without angina pectoris; M81.0 Age-related osteoporosis without current pathological fracture; Z88.1 Allergy status to other antibiotic agents; Z88.5 Allergy status to narcotic agent; Z88.8 Allergy status to other drugs, medicaments and biological substances; Z88.7 Allergy status to serum and vaccine; Z79.890 Hormone replacement therapy; Z79.84 Long term (current) use of oral hypoglycemic drugs; Z79.899 Other long term (current) drug therapy
CPT/HCPCS: 00731; 43239; 87081; 99100; J2704; J3010; J3490; J7120

== ENCOUNTER 2023-02-19 12:38 | Observation (INO) | payer MEDICARE, BC ==
[2023-02-19] MEDS ORDERED: Ondansetron 4 MG/2 ML SDV IV PRN (13:10)
[2023-02-19] MEDS ORDERED: Acetaminophen 325 MG Tab PO PRN (13:10)
[2023-02-19] MEDS ORDERED: Ondansetron 4 MG Tab.DIS PO PRN (13:10)
[2023-02-19] MEDS ORDERED: Sodium Chloride 0.9% 10 ML Syringe FLUSH PRN (13:10)
[2023-02-19 13:15] LABS: BASOPHILS ABSOLUTE AUTO 0.04 10^3/uL (0.00-0.50); BASOPHILS PERCENT AUTO 0.4 % (0-1); EOSINOPHILS ABSOLUTE AUTO 0.04 10^3/uL (0.00-1.50); EOSINOPHILS PERCENT AUTO 0.4 % (0-6); HEMATOCRIT 39.7 % (37.0-47.0); HEMOGLOBIN 12.9 g/dL (12.0-16.0); IMMATURE GRAN ABSOLUTE AUTO 0.02 10^3/uL (0.00-0.49); IMMATURE GRAN PERCENT AUTO 0.2 % (0.0-4.9); LYMPHOCYTES ABSOLUTE AUTO 1.84 10^3/uL (0.60-5.00); LYMPHOCYTES PERCENT AUTO 19.1 % (24-44); MEAN CORPUSCULAR HEMOGLOBIN 31.2 pg (27.0-32.0); MEAN CORPUSCULAR HGB CONC 32.5 g/dL (32.0-36.0); MEAN CORPUSCULAR VOLUME 96.1 fL (83.0-97.0); MONOCYTES ABSOLUTE AUTO 0.71 10^3/uL (0.00-1.50); MONOCYTES PERCENT AUTO 7.4 % (0-10); NEUTROPHILS ABSOLUTE AUTO 6.98 x10^3/uL (1.80-8.00); NEUTROPHILS PERCENT AUTO 72.5 % (41-71); PLATELET COUNT,PLT 220 10^3/uL (150-400); RED BLOOD CELL COUNT 4.13 x10^6/uL (4.00-5.50); WHITE BLOOD CELL COUNT,WBC 9.6 10^3/uL (4.0-11.0)
[2023-02-19 13:18] LABS: APPEARANCE,URINE CLEAR (CLEAR); BILIRUBIN,URINE SMALL (NEGATIVE); COLOR,URINE YELLOW (YELLOW); GLUCOSE,URINE NEGATIVE (NEGATIVE); KETONES,URINE 15 mg/dL (NEGATIVE); LEUKOCYTE ESTERASE,URINE TRACE (NEGATIVE); NITRITE,URINE NEGATIVE (NEGATIVE); OCCULT BLOOD,URINE NEGATIVE (NEGATIVE); PH,URINE 5.5 (4.5-8.0); PROTEIN,URINE NEGATIVE (NEGATIVE); UROBILINOGEN,URINE 0.2 EU/dL (0.2-1.0)
[2023-02-19 13:25] LABS: BACTERIA,URINE NOT SEEN /HPF (NOT SEEN); EPITHELIAL CELLS,URINE FEW /HPF (NOT SEEN); MUCUS,URINE NOT SEEN /HPF (NOT SEEN); RBC,URINE NOT SEEN /HPF (0-5); WBC,URINE 0-5 /HPF (0-5)
[2023-02-19 13:31] LABS: ALANINE AMINOTRANSFERASE,ALT 25 U/L (12-78); ALBUMIN 3.5 g/dL (3.4-5.0); ALKALINE PHOSPHATASE 65 U/L (46-116); ASPARTATE AMNIOTRANSFERASE,AST 23 U/L (15-37); BILIRUBIN TOTAL 0.6 mg/dL (0.0-1.0); BLOOD UREA NITROGEN,BUN 10 mg/dL (7-18); C-REACTIVE PROTEIN < 0.50 mg/dL (<=0.50); CALCIUM 9.6 mg/dL (8.4-10.1); CARBON DIOXIDE,CO2 32 mmol/L (21-32); CHLORIDE,CL 100 mEq/L (98-106); CREATININE 0.7 mg/dL (0.6-1.0); EST CRCL DRUG DOSING (CG) 65.45 mL/min; ESTIMATED GFR 89 mL/min (>=60); GLUCOSE RANDOM 84 mg/dL (75-99); MAGNESIUM 2.1 mg/dL (1.8-2.4); POTASSIUM,K 3.3 mEq/L (3.5-5.0); SODIUM,NA 139 mEq/L (136-145)
[2023-02-19] MEDS ORDERED: Potassium Chloride 20 MEQ Tab.ER PO ONE (13:44)
[2023-02-19 13:49] LABS: TSH ULTRASENSITIVE 1.37 uIU/mL (0.36-5.60)
[2023-02-19 13:53] LABS: CORONAVIRUS COVID-19 NAA NEGATIVE (NEGATIVE); INFLUENZA A NAA NEGATIVE (NEGATIVE); INFLUENZA B NAA NEGATIVE (NEGATIVE)
[2023-02-19] MEDS ORDERED: LORazepam 2 MG/ML SDV IVPUSH ONE ×2 (14:06→15:45)
[2023-02-19] MEDS: Sodium Chloride 0.9% 1,000 ML IV SCH (14:21)
[2023-02-19] MEDS ORDERED: LORazepam 0.5 MG Tab PO SCH (16:00)
[2023-02-19] MEDS: Latanoprost 0.005% Ophth Soln 2.5 ML Bottle EYEBOTH SCH ×2 (19:56→20:19)
[2023-02-19] MEDS: DOXYCYCLINE 20 MG PO SCH (19:56)
[2023-02-19] MEDS: LORazepam 0.5 MG Tab PO SCH (19:56)
[2023-02-19] MEDS: Hypromellose 0.3% Ophth Soln 15 ML Bottle EYEBOTH SCH ×2 (19:57→20:17)
[2023-02-19] MEDS: Mirtazapine 15 MG Tab PO SCH ×2 (19:57→20:46)
[2023-02-19] MEDS ORDERED: INSULIN GLARGINE SUBCUT SCH (20:00)
[2023-02-19] MEDS ORDERED: Insulin Glarg,Human.Rec.Analog 100 Unit/ML 10 ML Vial SUBCUT SCH (20:00)
[2023-02-20] MEDS: Sodium Chloride 0.9% 1,000 ML IV SCH (00:21)
[2023-02-20] MEDS ORDERED: Levothyroxine 88 MCG Tab PO SCH (07:00)
[2023-02-20 07:43] LABS: BASOPHILS ABSOLUTE AUTO 0.02 10^3/uL (0.00-0.50); BASOPHILS PERCENT AUTO 0.3 % (0-1); EOSINOPHILS ABSOLUTE AUTO 0.08 10^3/uL (0.00-1.50); EOSINOPHILS PERCENT AUTO 1.2 % (0-6); HEMATOCRIT 34.5 % (37.0-47.0); HEMOGLOBIN 11.2 g/dL (12.0-16.0); IMMATURE GRAN ABSOLUTE AUTO 0.02 10^3/uL (0.00-0.49); IMMATURE GRAN PERCENT AUTO 0.3 % (0.0-4.9); LYMPHOCYTES ABSOLUTE AUTO 2.25 10^3/uL (0.60-5.00); MEAN CORPUSCULAR HEMOGLOBIN 31.5 pg (27.0-32.0); MEAN CORPUSCULAR HGB CONC 32.5 g/dL (32.0-36.0); MEAN CORPUSCULAR VOLUME 96.9 fL (83.0-97.0); MONOCYTES PERCENT AUTO 9.3 % (0-10); NEUTROPHILS ABSOLUTE AUTO 3.46 x10^3/uL (1.80-8.00); NEUTROPHILS PERCENT AUTO 53.9 % (41-71); PLATELET COUNT,PLT 186 10^3/uL (150-400); RED BLOOD CELL COUNT 3.56 x10^6/uL (4.00-5.50); WHITE BLOOD CELL COUNT,WBC 6.4 10^3/uL (4.0-11.0)
[2023-02-20] MEDS: LORazepam 0.5 MG Tab PO SCH ×2 (07:44→11:36)
[2023-02-20] MEDS: Hypromellose 0.3% Ophth Soln 15 ML Bottle EYEBOTH SCH (07:46)
[2023-02-20] MEDS ORDERED: Non-Formulary Medication 1 Each (Ubidecarenone [Co Q-10] 100 MG Capsule) PO SCH (08:00)
[2023-02-20] MEDS ORDERED: DOXYCYCLINE 50 MG PO SCH (08:00)
[2023-02-20] MEDS ORDERED: Estradiol 1 MG Tab PO SCH (08:00)
[2023-02-20] MEDS ORDERED: Clopidogrel 75 MG Tab PO SCH (08:00)
[2023-02-20] MEDS ORDERED: Cholecalciferol (Vitamin D3) 5,000 UNIT Tab PO SCH (08:00)
[2023-02-20] MEDS ORDERED: Atenolol 25 MG Tab PO SCH (08:00)
[2023-02-20] MEDS ORDERED: amLODIPine 2.5 MG Tab PO SCH (08:00)
[2023-02-20] MEDS ORDERED: atorvaSTATin 20 MG Tab PO SCH (08:00)
[2023-02-20] MEDS ORDERED: Magnesium Oxide 400 MG Tab PO SCH (08:00)
[2023-02-20] MEDS ORDERED: Non-Formulary Medication 1 Each (Ubidecarenone [Co Q-10] 200 MG Capsule) PO SCH (08:00)
[2023-02-20] MEDS ORDERED: Pantoprazole 40 MG Tab.CR PO SCH (08:00)
[2023-02-20] MEDS ORDERED: Isosorbide Mononitrate 30 MG Tab.ER PO SCH (08:00)
[2023-02-20 08:06] LABS: ALBUMIN 2.6 g/dL (3.4-5.0); BILIRUBIN TOTAL 0.4 mg/dL (0.0-1.0); CALCIUM 8.2 mg/dL (8.4-10.1); CREATININE 0.7 mg/dL (0.6-1.0); EST CRCL DRUG DOSING (CG) 65.45 mL/min; PROTEIN TOTAL,TP 5.6 g/dL (6.4-8.2)
[2023-02-20 08:31] VITALS: BP 175/76; PULSE 85
[2023-02-20 08:31] LABS: MAGNESIUM 1.8 mg/dL (1.8-2.4); POTASSIUM,K 3.3 mEq/L (3.5-5.0)
[2023-02-20] MEDS: DOXYCYCLINE 20 MG PO SCH (09:50)
== END 2023-02-20 12:15 | disposition home or self-care (01) ==
LOC: UNDOADMOB 12:38 → CC.MS 12:38
PROVIDERS: ADMIT Nurse Practitioner Family; ATTEND Nurse Practitioner Family
DX: F41.9 Anxiety disorder, unspecified (principal); R25.1 Tremor, unspecified; R53.1 Weakness; E86.0 Dehydration; R63.0 Anorexia; Z20.822 Contact with and (suspected) exposure to COVID-19; I10 Essential (primary) hypertension; E78.00 Pure hypercholesterolemia, unspecified; E03.9 Hypothyroidism, unspecified; Z79.890 Hormone replacement therapy; Z79.899 Other long term (current) drug therapy
CPT/HCPCS: 0240U; 36415; 80053; 81001; 82533; 82947; 83735; 84443; 85025; 86140; A9270; J2060; J7030; 96361; 96374; 99223; 99239; G0378

== ENCOUNTER 2024-07-08 07:32 | Day surgery (SDC) | payer MEDICARE, BC ==
[~2024-07-08 07:32] MED LIST changes: -Ketamine 200 MG/20 ML MDV ONE; -Lidocaine 2% 20 ML MDV ONE; -Propofol 200 MG/20 ML SDV ONE; -fentaNYL 50 MCG/ML SDV ONE
[2024-07-08] MEDS ORDERED: Lidocaine 2% 20 ML MDV ONE (08:30)
[2024-07-08] MEDS ORDERED: fentaNYL 50 MCG/ML SDV ONE (08:30)
[2024-07-08] MEDS ORDERED: Ketamine 200 MG/20 ML MDV ONE (08:30)
[2024-07-08] MEDS ORDERED: Propofol 200 MG/20 ML SDV ONE (08:30)
[2024-07-08 10:54] VITALS: BP 109/58; PULSE 60
== END 2024-07-08 10:10 | disposition home or self-care (01) ==
LOC: CC.SDS 07:32
PROVIDERS: ATTEND Family Medicine
DX: Z12.11 Encounter for screening for malignant neoplasm of colon (principal); D12.2 Benign neoplasm of ascending colon; K31.89 Other diseases of stomach and duodenum; K31.7 Polyp of stomach and duodenum; K57.30 Diverticulosis of large intestine without perforation or abscess without bleeding; K21.9 Gastro-esophageal reflux disease without esophagitis; I10 Essential (primary) hypertension; E03.9 Hypothyroidism, unspecified; E11.9 Type 2 diabetes mellitus without complications; I25.10 Atherosclerotic heart disease of native coronary artery without angina pectoris; Z79.890 Hormone replacement therapy; Z79.899 Other long term (current) drug therapy; Z86.0100 Personal history of colon polyps, unspecified
CPT/HCPCS: 00813; 87081; 88305; 99100; J2003; J2704; J3010; J3490